=== PATIENT | female | born 1960 | race Caucasian/White ===

== ENCOUNTER 2019-03-11 20:54 | Inpatient (IN) | payer SELFPAY ==
[~2019-03-11] VITALS: Ht 160 cm; Wt 83.6 kg
[2019-03-11] MEDS ORDERED: ACETAMINOPHEN 500 MG TAB (TYLENOL) PO ONE (21:15)
[2019-03-11] MEDS ORDERED: IBUPROFEN 800 MG (MOTRIN) TAB PO ONE (21:15)
[2019-03-11] MEDS ORDERED: ONDANSETRON 4 MG (ZOFRAN) ORAL DISSOLVE TAB PO ONE (21:15)
--- NOTE | 2019-03-11 21:20 | ED General ---
General Chief Complaint: Cough/Cold/Flu Symptoms Stated Complaint: FEVER,ACHES Source of Information: Patient Exam Limitations: No Limitations History of Present Illness Date Seen by Provider: Mar 11, 2019 Time Seen by Provider: 21:16 Initial Comments To ER per accompanied by family with fever, headache, cough, sore throat and body aches that began 3 days ago. She is a diabetic. She follows with [facility]. She finished antibiotics for urinary tract infection one week ago. Timing/Duration: 1-2 Days Severity: Moderate Associated Systoms: Cough, Fever/Chills, Headaches, Malaise, Nausea/Vomiting, Weakness Allergies and Home Medications Allergies Coded Allergies: No Known Drug Allergies (Unverified , 03/11/19) Patient Home Medication List Home Medication List Reviewed: Yes Review of Systems Review of Systems Constitutional: see HPI, chills, fever, malaise EENTM: see HPI, throat pain Respiratory: see HPI, cough Cardiovascular: no symptoms reported Gastrointestinal: No abdominal pain, No diarrhea; nausea; No vomiting Genitourinary: no symptoms reported Musculoskeletal: no symptoms reported; No back pain Skin: no symptoms reported Psychiatric/Neurological: See HPI, Headache Hematologic/Lymphatic: No Symptoms Reported Past Oxgiyrz-Epdsfg-Ousnma Hx Patient Social History Recent Foreign Travel: No Contact w/Someone Who Travel: No Physical Exam Vital Signs Vital Signs - First Documented 03/11/19 21:16 Temp 39.9 Pulse 125 Resp 21 B/P (MAP) 138/81 (100) Pulse Ox 95 O2 Delivery Room Air Capillary Refill : Height, Weight, BMI Height: '" Weight: lbs. oz. kg; BMI Method: General Appearance: No Apparent Distress, WD/WN Eyes: Bilateral Eye Normal Inspection, Bilateral Eye PERRL, Bilateral Eye EOMI HEENT: PERRL/EOMI, TMs Normal, Normal ENT Inspection Neck: Full Range of Motion, Normal Inspection Respiratory: Lungs Clear, Normal Breath Sounds, No Accessory Muscle Use, No Respiratory Distress Gastrointestinal: Normal Bowel Sounds, Non Tender, Soft Back: CVA Tenderness (L), CVA Tenderness (R) Extremity: Normal Capillary Refill, Normal Inspection Neurologic/Psychiatric: Alert, Oriented x3 Skin: Normal Color, Warm/Dry Focused Exam Lactate Level 03/11/19 22:28: Lactic Acid Level 2.35*H Lactic Acid Level Laboratory Tests Test 1/24/20 22:28 Lactic Acid Level 2.35 MMOL/L (0.50-2.00) *H Progress/Results/Core Measures Suspected Sepsis SIRS Temperature: Pulse: Respiratory Rate: Laboratory Tests 03/11/19 21:58: White Blood Count 25.3H Blood Pressure / Mean: 03/11/19 22:28: Lactic Acid Level 2.35*H Laboratory Tests 03/11/19 21:58: Creatinine 0.92, Platelet Count 161, Total Bilirubin 1.1H Results/Orders Lab Results Laboratory Tests Test 03/11/19 21:58 03/11/19 22:28 Range/Units White Blood Count 25.3 H 4.3-11.0 10^3/uL Red Blood Count 4.61 4.35-5.85 10^6/uL Hemoglobin 13.1 11.5-16.0 G/DL Hematocrit 39 35-52 % Mean Corpuscular Volume 84 80-99 FL Mean Corpuscular Hemoglobin 28 25-34 PG Mean Corpuscular Hemoglobin Concent 34 32-36 G/DL Red Cell Distribution Width 14.8 H 10.0-14.5 % Platelet Count 161 130-400 10^3/uL Mean Platelet Volume 12.7 H 7.4-10.4 FL Neutrophils (%) (Auto) 85 H 42-75 % Lymphocytes (%) (Auto) 6 L 12-44 % Monocytes (%) (Auto) 9 0-12 % Eosinophils (%) (Auto) 0 0-10 % Basophils (%) (Auto) 0 0-10 % Neutrophils # (Auto) 21.6 H 1.8-7.8 X 10^3 Lymphocytes # (Auto) 1.4 1.0-4.0 X 10^3 Monocytes # (Auto) 2.3 H 0.0-1.0 X 10^3 Eosinophils # (Auto) 0.0 0.0-0.3 10^3/uL Basophils # (Auto) 0.1 0.0-0.1 10^3/uL Neutrophils % (Manual) 82 % Lymphocytes % (Manual) 7 % Monocytes % (Manual) 11 % Blood Morphology Comment NORMAL Sodium Level 130 L 135-145 MMOL/L Potassium Level 4.1 3.6-5.0 MMOL/L Chloride Level 100 98-107 MMOL/L Carbon Dioxide Level 21 21-32 MMOL/L Anion Gap 9 5-14 MMOL/L Blood Urea Nitrogen 13 7-18 MG/DL Creatinine 0.92 0.60-1.30 MG/DL Estimat Glomerular Filtration Rate > 60 BUN/Creatinine Ratio 14 Glucose Level 262 H 70-105 MG/DL Calcium Level 9.5 8.5-10.1 MG/DL Corrected Calcium 9.9 8.5-10.1 MG/DL Total Bilirubin 1.1 H 0.1-1.0 MG/DL Aspartate Amino Transf (AST/SGOT) 43 H 5-34 U/L Alanine Aminotransferase (ALT/SGPT) 49 0-55 U/L Alkaline Phosphatase 90 40-136 U/L B-Type Natriuretic Peptide 40.3 <100.0 PG/ML Total Protein 7.0 6.4-8.2 GM/DL Albumin 3.5 3.2-4.5 GM/DL Urine Color ORANGE Urine Clarity CLEAR Urine pH 6.5 5-9 Urine Specific Hope 1.020 1.016-1.022 Urine Protein TRACE NEGATIVE Urine Glucose (UA) NEGATIVE NEGATIVE Urine Ketones NEGATIVE NEGATIVE Urine Nitrite NEGATIVE NEGATIVE Urine Bilirubin NEGATIVE NEGATIVE Urine Urobilinogen 1.0 < = 1.0 MG/DL Urine Leukocyte Esterase 2+ H NEGATIVE Urine RBC (Auto) 1+ H NEGATIVE Urine RBC 2-5 H /HPF Urine WBC 25-50 H /HPF Urine Crystals NONE /LPF Urine Bacteria LARGE H /HPF Urine Casts NONE /LPF Urine Mucus NEGATIVE /LPF Urine Culture Indicated YES Lactic Acid Level 2.35 *H 0.50-2.00 MMOL/L Group A Streptococcus Screen NEGATIVE NEGATIVE Micro Results Microbiology 03/11/19 Influenza Types A,B Antigen (ELIZABETH) - Final, Complete My Orders Orders - YUNI DICKSON APRN Influenza A And B Antigens (03/11/19 21:15) Chest Pa/Lat (2 View) (03/11/19 21:15) Ondansetron Oral Dissolve Tab (Zofran (03/11/19 21:15) Acetaminophen Tablet (Tylenol Tablet) (03/11/19 21:15) Ibuprofen Tablet (Motrin Tablet) (03/11/19 21:15) Cbc With Automated Diff (03/11/19 21:53) BNP (03/11/19 22:09) Manual Differential (03/11/19 21:58) Rapid Strep A Screen (03/11/19 22:20) Comprehensive Metabolic Panel (03/11/19 22:20) Ua Culture If Indicated (03/11/19 22:34) Blood Culture (03/11/19 22:34) Lactic Acid Analyzer (03/11/19 22:34) Ns Iv 1000 Ml (Sodium Chloride 0.9%) (03/11/19 22:45) Ceftriaxone For Iv Use (Rocephin For I (03/11/19 22:45) Ns Iv 1000 Ml (Sodium Chloride 0.9%) (03/11/19 23:00) Urine Culture (03/11/19 22:28) Medications Given in ED Current Medications Medications Dose Ordered Sig/Ángel Route Start Time Stop Time Status Last Admin Dose Admin Acetaminophen 1,000 mg ONCE ONCE PO 03/11/19 21:15 03/11/19 21:16 DC 03/11/19 21:23 1,000 MG Ceftriaxone Sodium 1000 mg/ Sterile Water 10 ml @ 200 mls/hr ONCE ONCE IV 03/11/19 22:45 03/11/19 22:47 DC 03/11/19 22:58 200 MLS/HR Ibuprofen 800 mg ONCE ONCE PO 03/11/19 21:15 03/11/19 21:16 DC 03/11/19 21:23 800 MG Ondansetron HCl 4 mg ONCE ONCE PO 03/11/19 21:15 03/11/19 21:16 DC 03/11/19 21:23 4 MG Vital Signs/I&O 03/11/19 03/11/19 03/11/19 03/11/19 21:16 21:23 21:23 21:28 Temp 39.9 39.9 39.9 Pulse 125 Resp 21 B/P (MAP) 138/81 (100) Pulse Ox 95 O2 Delivery Room Air Room Air Capillary Refill : Diagnostic Imaging Diagonstic Imaging: Xray Plain Films/CT/US/NM/MRI: chest Comments NAME: SIENNA SIMEON [facility] REC#: [id number] PT STATUS: REG ER : 1960 PHYSICIAN: YUNI DICKSON APRN ADMIT DATE: 03/11/19/ER Draft Date of Exam:03/11/19 CHEST PA/LAT (2 VIEW) INDICATION: Cough. EXAMINATION: Two-view chest 03/11/2019. FINDINGS: 2 views of the chest. The heart is unremarkable. Pulmonary vasculature is congested. Remaining lungs clear. No effusions or infiltrates. IMPRESSION: 1. Findings of pulmonary edema. Dictated on workstation # [id number] Dict: 03/11/192157 Trans: 03/11/192199 [id number] Interpreted by: MICHELLE LU MD Electronically signed by: Departure Communication (Admissions) Time/Spoke to Admitting Phy: 23:11 Dr. Youngblood, we'll admit to the ICU, sepsis protocol, will use cefepime given the risk for multidrug resistant organisms given recent antibiotic use. Upon arrival to ER she was febrile at 103.4. Tachycardic but not hypotensive. Based on symptoms and high fever influenza was suspected. Flu swab was obtained but surprisingly was negative. CBC was then done showing leukocytosis. Additional workup included rapid strep A lactic acid blood culture and urinalysis. She is feeling better after the Tylenol and ibuprofen. IV started and 2 L fluid bolus given. Impression Primary Impression: Sepsis Qualified Codes: A41.9 - Sepsis, unspecified organism Additional Impression: Pyelonephritis Disposition: ADMITTED INPATIENT Condition: Stable Admissions Decision to Admit Reason: Admit from ER (General) Decision to Admit/Date: Mar 11, 2019 Time/Decision to Admit Time: 22:52 Departure-Patient Inst. Decision time for Depature: 21:18 Referrals: NO,LOCAL PHYSICIAN (PCP) Primary Care Physician Patient Instructions: Flu Add. Discharge Instructions: Use Tylenol (acetaminophen) and ibuprofen (Motrin) for fever control. You can u se this several times per day, every 4 hours for the Tylenol and 6 hours for the Motrin. You Will not feel much better for the next few days. Expects to be sick for about 7-10 days. YUNI DICKSON APRN Mar 11, 2019 21:20
--- NOTE | 2019-03-11 22:00 | Diagnostic Imaging Report ---
INDICATION: Cough. EXAMINATION: Two-view chest 03/11/2019. FINDINGS: 2 views of the chest. The heart is unremarkable. Pulmonary vasculature is congested. Remaining lungs clear. No effusions or infiltrates. IMPRESSION: 1. Findings of pulmonary edema. Dictated by: Dictated on workstation # [id number]
[2019-03-11 22:14] LABS: BASOPHILS # (AUTO) 0.1 10^3/uL (0.0-0.1); BASOPHILS % (AUTO) 0 % (0-10); EOSINOPHILS % (AUTO) 0 % (0-10); HEMATOCRIT 39 % (35-52); HEMOGLOBIN 13.1 G/DL (11.5-16.0); LYMPHOCYTES # (AUTO) 1.4 X 10^3 (1.0-4.0); LYMPHOCYTES % (AUTO) 6 % (12-44); MEAN CORPUSCULAR HEMOGLOBIN 28 PG (25-34); MEAN CORPUSCULAR HGB CONC 34 G/DL (32-36); MEAN CORPUSCULAR VOLUME 84 FL (80-99); MEAN PLATELET VOLUME 12.7 FL (7.4-10.4); MONOCYTES # (AUTO) 2.3 X 10^3 (0.0-1.0); MONOCYTES % (AUTO) 9 % (0-12); NEUTROPHILS # (AUTO) 21.6 X 10^3 (1.8-7.8); NEUTROPHILS % (AUTO) 85 % (42-75); PLATELET COUNT 161 10^3/uL (130-400); RED CELL DISTRIBUTION WIDTH 14.8 % (10.0-14.5); WHITE BLOOD COUNT 25.3 10^3/uL (4.3-11.0)
[2019-03-11 22:43] LABS: ALANINE AMINOTRANSFERASE 49 U/L (0-55); ALBUMIN 3.5 GM/DL (3.2-4.5); ALKALINE PHOSPHATASE 90 U/L (40-136); BILIRUBIN,TOTAL 1.1 MG/DL (0.1-1.0); BUN/CREATININE RATIO 14; CALCIUM 9.5 MG/DL (8.5-10.1); CARBON DIOXIDE 21 MMOL/L (21-32); CHLORIDE 100 MMOL/L (98-107); CREATININE SERUM 0.92 MG/DL (0.60-1.30); GFR ESTIMATED > 60; GLUCOSE 262 MG/DL (70-105); LYMPHOCYTES % (MANUAL) 7 %; MONOCYTES % (MANUAL) 11 %; NEUTROPHILS % (MANUAL) 82 %; POTASSIUM 4.1 MMOL/L (3.6-5.0); RBC MORPH NORMAL; SODIUM 130 MMOL/L (135-145)
[2019-03-11] MEDS ORDERED: NS IV 1000 ML 1,000 ML IV SCH ×2 (22:45→23:00)
[2019-03-11] MEDS ORDERED: cefTRIAXone FOR IV USE 1,000 MG in WATER (STERILE) FOR INJECTION 10 ML IV ONE (22:45)
[2019-03-11 22:56] LABS: BILIRUBIN,URINE NEGATIVE (NEGATIVE); CLARITY,URINE CLEAR; COLOR,URINE ORANGE; GLUCOSE, URINE (UA) NEGATIVE (NEGATIVE); KETONES,URINE NEGATIVE (NEGATIVE); LEUKOCYTE ESTERASE ,URINE 2+ (NEGATIVE); NITRITE,URINE NEGATIVE (NEGATIVE); PH,URINE 6.5 (5-9); PROTEIN,URINE TRACE (NEGATIVE)
[2019-03-11 23:05] LABS: BACTERIA,URINE LARGE /HPF; WBC,URINE 25-50 /HPF
[2019-03-12] VITALS (20 sets, daily range): BP systolic 81–127; BP diastolic 53–77
[2019-03-12] MEDS ORDERED: ACETAMINOPHEN 325 MG TABLET PO PRN (01:15)
[2019-03-12] MEDS ORDERED: ONDANSETRON 4 MG/2 ML (SDV) Z0FRAN IV PRN (01:15)
[2019-03-12] MEDS: VASOPRESSIN INJECTION 20 UNIT in NORMAL SALINE 100 ML IV SCH ×2 (01:29→08:22)
[2019-03-12] MEDS ORDERED: ENOXAPARIN 40 MG/0.4 ML (LOVENOX) SYR SC SCH (01:29)
[2019-03-12] MEDS: NOREPINEPHRINE 4 MG/250 ML NS 250 ML IV SCH ×2 (01:29→08:23)
[2019-03-12] MEDS: NS IV 1000 ML 1,000 ML IV SCH ×4 (01:29→08:06)
--- NOTE | 2019-03-12 01:29 | NUR ---
PT RECEIVED 2 LITER BOLUS IN ER
[2019-03-12] MEDS ORDERED: LORazepam INJ 2 MG/ML (ATIVAN) VIAL IV PRN (01:30)
[2019-03-12] MEDS ORDERED: EPINEPHrine 1 MG INJECTION 2 MG in NS (IVPB) 250 ML IV SCH (01:30)
[2019-03-12 01:33] LABS: BASOPHILS % (AUTO) 0 % (0-10); EOSINOPHILS % (AUTO) 0 % (0-10); HEMATOCRIT 35 % (35-52); HEMOGLOBIN 11.6 G/DL (11.5-16.0); LYMPHOCYTES # (AUTO) 1.4 X 10^3 (1.0-4.0); LYMPHOCYTES % (AUTO) 7 % (12-44); MEAN CORPUSCULAR HEMOGLOBIN 28 PG (25-34); MEAN CORPUSCULAR HGB CONC 33 G/DL (32-36); MEAN CORPUSCULAR VOLUME 86 FL (80-99); MEAN PLATELET VOLUME 12.3 FL (7.4-10.4); MONOCYTES # (AUTO) 1.4 X 10^3 (0.0-1.0); MONOCYTES % (AUTO) 7 % (0-12); NEUTROPHILS # (AUTO) 17.4 X 10^3 (1.8-7.8); NEUTROPHILS % (AUTO) 86 % (42-75); PLATELET COUNT 142 10^3/uL (130-400); RED CELL DISTRIBUTION WIDTH 14.6 % (10.0-14.5); WHITE BLOOD COUNT 20.2 10^3/uL (4.3-11.0)
[2019-03-12 01:48] LABS: ALANINE AMINOTRANSFERASE 39 U/L (0-55); ALBUMIN 2.9 GM/DL (3.2-4.5); ALKALINE PHOSPHATASE 73 U/L (40-136); BUN/CREATININE RATIO 15; CALCIUM 8.1 MG/DL (8.5-10.1); CARBON DIOXIDE 19 MMOL/L (21-32); CHLORIDE 105 MMOL/L (98-107); CREATININE SERUM 0.81 MG/DL (0.60-1.30); GFR ESTIMATED > 60; GLUCOSE 218 MG/DL (70-105); MAGNESIUM 1.7 MG/DL (1.6-2.4); PHOSPHORUS 2.9 MG/DL (2.3-4.7); SODIUM 134 MMOL/L (135-145); TOTAL PROTEIN 5.8 GM/DL (6.4-8.2)
[2019-03-12] MEDS ORDERED: SODIUM BICARB 8.4% 50 MEQ/50 ML VIAL ONE (02:52)
--- NOTE | 2019-03-12 03:10 | NUR ---
NOTIFIED E-ICU OF LOW BP, SEE ORDER HX
[2019-03-12] MEDS ORDERED: SODIUM BICARB 8.4% 50 MEQ/50 ML VIAL IV ONE (03:15)
[2019-03-12] MEDS ORDERED: NS IV 1000 ML 1,000 ML IV ONE (03:15)
[2019-03-12] MEDS: MAGNESIUM 1 GM/100 ML IVPB 100 ML IV SCH ×2 (05:00→05:59)
[2019-03-12] MEDS: CEFEPIME INJECTION 1,000 MG in WATER (STERILE) FOR INJECTION 10 ML IV SCH ×4 (05:00→22:39)
--- NOTE | 2019-03-12 05:55 | Pulmonary Consultation ---
History of Present Illness History of Present Illness Date of Admission Allergies and Home Medications Allergies Coded Allergies: No Known Drug Allergies (Unverified , 03/11/19) Past Zgnpruk-Zhdijl-Seqeou Hx Patient Social History Alcohol Use: Denies Use Recreational Drug Use: No Smoking Status: Never a Smoker 2nd Hand Smoke Exposure: No Recent Foreign Travel: No Contact w/Someone Who Travel: No Recent Infectious Disease Expo: No Recent Hopitalizations: No Physical Abuse: No Sexual Abuse: No Mistreated: No Fear: No Immunizations Up To Date Date of Influenza Vaccine: Dec 18, 2019 Seasonal Allergies Seasonal Allergies: No Past Medical History Surgeries: No Respiratory: No Cardiac: No Neurological: No Genitourinary: No Gastrointestinal: No Musculoskeletal: No Endocrine: No HEENT: No Cancer: No Psychosocial: No Integumentary: No Sepsis Event Evaluation Height, Weight, BMI Height: '" Weight: lbs. oz. kg; 31.79 BMI Method: Exam Exam Vital Signs Date Time Temp Pulse Resp B/P (MAP) Pulse Ox O2 Delivery O2 Flow Rate FiO2 03/12/19 04:00 96 Room Air 03/12/19 04:00 36.7 03/12/19 03:08 36.1 03/12/19 03:00 73 18 81/53 (62) 93 Room Air 03/12/19 02:00 78 22 88/56 (67) 90 Room Air 03/12/19 01:30 80 15 94/57 (69) 92 Room Air 03/12/19 01:15 74 16 108/72 (84) 92 Room Air 03/12/19 01:11 94 Room Air 03/12/19 01:03 36.6 03/12/19 01:00 77 15 113/66 (82) 94 Room Air 03/12/19 00:48 76 16 103/67 (79) 94 Room Air 03/12/19 00:47 85 03/12/19 00:47 77 03/12/19 00:20 39.9 125 21 110/72 (100) 95 Room Air 03/11/19 21:28 Room Air 03/11/19 21:23 39.9 03/11/19 21:23 39.9 03/11/19 21:16 39.9 125 21 138/81 (100) 95 Room Air I & O 03/12/19 07:00 Intake Total 5010 ml Output Total 350 ml Balance 4660 ml Height & Weight Height: '" Weight: lbs. oz. kg; 31.79 BMI Method: General Appearance: No Apparent Distress, WD/WN HEENT: PERRL/EOMI, TMs Normal, Normal ENT Inspection Neck: Full Range of Motion, Normal Inspection Respiratory: Lungs Clear, Normal Breath Sounds, No Accessory Muscle Use, No Respiratory Distress Capillary Refill: Less Than 3 Seconds Extremity: Normal Capillary Refill, Normal Inspection Neurologic/Psychiatric: Alert, Oriented x3 Skin: Normal Color, Warm/Dry Results Lab Laboratory Tests 03/11/19 21:58 03/12/19 01:24 Assessment/Plan Assessment/Plan Pyelonephritis with severe sepsis -Severe sepsis protocol -Continue Cefepime -Await gonzalez cultures -Failed out pt treatment -Influenza is negative -NS at 150cc/hr DMII -Start SSI Hypotension - responded to IVF -Continue to monitor Hypomag -replace Hyponatremia -Monitor BRISA LARSON DO Mar 12, 2019 05:54
[2019-03-12] MEDS ORDERED: POTASSIUM CL 10MEQ/50ML IVPB 50 ML IV SCH (06:00)
[2019-03-12] MEDS ORDERED: KCL 20 MEQ TAB (K-DUR) PO SCH (06:00)
[2019-03-12] MEDS ORDERED: MAGNESIUM 1 GM/100 ML IVPB 100 ML IV SCH (06:00)
[2019-03-12] MEDS: inSUlin ASPART (NovoLOG) 1 UNIT/0.01 ML (CHARGE PER UNIT) SC SCH ×4 (06:11→21:29)
[2019-03-12] MEDS: ENOXAPARIN 40 MG/0.4 ML (LOVENOX) SYR SC SCH (08:07)
--- NOTE | 2019-03-12 10:45 | History & Physical-Hospitalist ---
History of Present Illness HPI/Chief Complaint Chief complaint: Sepsis with pyelonephritis History of present illness: This is a 58-year-old white female who presented to the ER with fever and chills found to have sepsis with pyelonephritis and high risk for decompensation so she was given aggressive IV fluids along with IV antibiotics empirically and placed in the ICU overnight. At this current time patient is doing much better she only speaks Syrian so I did communicate with her and basic Syrian terms and currently she is doing much better. She is coughing but it is nonproductive. We will transfer her to fourth floor since she has improved. Source: patient Exam Limitations: no limitations Date Seen 03/12/19 Time Seen by a Provider: 10:00 Attending Physician Mi Youngblood DO PCP No,Local Physician Referring Physician Date of Admission Mar 11, 2019 at 22:57 Home Medications & Allergies Home Medications Reviewed patient Home Medication Reconciliation performed by pharmacy medication reconciliations apprentice instrument technician and/or nursing. Patients Allergies have been reviewed. Allergies Allergies Coded Allergies No Known Drug Allergies (Unverified03/11/19) Past Ontzqlr-Owphgp-Cxuafm Hx Past Med/Social Hx: Reviewed Nursing Past Med/Soc Hx, Reviewed and Corrections made Patient Social History Marrital Status: Employed/Student: unemployed Alcohol Use: Denies Use Recreational Drug Use: No Smoking Status: Never a Smoker 2nd Hand Smoke Exposure: No Recent Foreign Travel: No Contact w/other who traveled: No Recent Hopitalizations: No Recent Infectious Disease Expo: No Immunizations Up To Date Date of Influenza Vaccine: Dec 18, 2019 Seasonal Allergies Seasonal Allergies: No Review of Systems Constitutional: see HPI, fever, malaise, weakness Respiratory: cough Physical Exam Physical Exam Vital Signs Vital Signs - First Documented 03/11/19 21:16 Temp 39.9 Pulse 125 Resp 21 B/P (MAP) 138/81 (100) Pulse Ox 95 O2 Delivery Room Air Capillary Refill : Less Than 3 Seconds Height, Weight, BMI Height: '" Weight: lbs. oz. kg; 31.79 BMI Method: General Appearance: No Apparent Distress, Chronically ill Eyes: Right Eye Normal Inspection, Right Eye PERRL HEENT: PERRL/EOMI, Normal ENT Inspection, Pharynx Normal, Moist Mucous Membranes Neck: Full Range of Motion, Normal Inspection, Non Tender Respiratory: Chest Non Tender, Lungs Clear, Normal Breath Sounds, No Accessory Muscle Use, No Respiratory Distress, Decreased Breath Sounds Cardiovascular: Regular Rate, Rhythm, No Edema, No Gallop, No JVD, No Murmur, Normal Peripheral Pulses Gastrointestinal: Normal Bowel Sounds, No Organomegaly, No Pulsatile Mass, Non Tender, Soft Back: Normal Inspection, No CVA Tenderness, No Vertebral Tenderness Extremity: Normal Capillary Refill, Normal Inspection, Normal Range of Motion, Non Tender, No Calf Tenderness, No Pedal Edema Neurologic/Psychiatric: Alert, Oriented x3, No Motor/Sensory Deficits, Normal Mood/Affect Skin: Normal Color, Warm/Dry Lymphatic: No Adenopathy Results Results/Procedures Labs Laboratory Tests 03/11/19 21:58 03/12/19 01:24 Patient resulted labs reviewed. Assessment/Plan Admission Diagnosis Assessment: Sepsis Pyelonephritis Cough Hyperglycemia Plan: Transfer to fourth floor Continue IV fluids but slower rate IV antibiotics Check hemoglobin A1c suspicion for diabetes Admission Status: Inpatient Order (span 2 midnights) Reason for Inpatient Admission: Sepsis with pyelonephritis will require 3 days Diagnosis/Problems Diagnosis/Problems (1) Sepsis Status: Acute Qualifiers: Sepsis type: sepsis due to unspecified organism Sepsis acute organ dysfunction status: without acute organ dysfunction Qualified Codes: A41.9 - Sepsis, unspecified organism (2) Pyelonephritis Status: Acute (3) UTI (urinary tract infection) Clinical Quality Measures DVT/VTE Risk/Contraindication: Risk Factor Score Per Nursin RFS Level Per Nursing on Admit: 4+=Very High MI YOUNGBLOOD DO Mar 12, 2019 10:45
--- NOTE | 2019-03-12 10:55 | NUR ---
REPORT GIVEN TO CAPO PATEL ON FOURTH FLOOR. PT TAKEN DOWN VIA WHEELCHAIR WITH DAUGHTER AND BELONGINGS.
[2019-03-12] MEDS ORDERED: POTASSIUM CHLORIDE INJ 10 MEQ in NS IV 1000 ML 1,000 ML IV SCH ×2 (11:15→17:30)
--- NOTE | 2019-03-12 11:20 | NUR ---
Patient transferred to [facility] per W/C accompanied by ICU STAFF. Patient and family notified and understand transfer. Personal belongings with patient. Report given to THIS RN FROM RESIDENTIAL TECH.
--- NOTE | 2019-03-12 13:12 | NUR ---
NOTE THAT COMPUTER SCANNER IN RM 409 NOT WORKING -- THIS RN ASKED UC TO PUT IN A WORK ORDER -- SHE VOICED THAT ONE WAS PLACED YESTERDAY 03/11
[2019-03-12] MEDS: IBUPROFEN 800 MG (MOTRIN) TAB PO PRN (15:03)
--- NOTE | 2019-03-12 16:00 | NUR ---
THIS RT TO BEDSIDE FOR ASSESSMENT PER OJRGE SCANLON REQUEST. PT ASSESSED INSPIRATORY RALES NOTED BILATERALLY T/O AND SPO2 NOTED TO BE 94% ON ROOM AIR RR 20. PT FAMILY AT BEDSIDE REPORTING THAT PT BECAME TACHYPNEIC ALL THE SUDDEN. RECOMMENDATION PROVIDED TO RN TO SEE IF PHYSICIAN WOULD LIKE TO ASSESS CXR D/T NO CURRENT RT ORDERS. RN INFORMED TO NOTIFY RESPIRATORY FOR ANY FURTHER NEEDS.
--- NOTE | 2019-03-12 16:10 | NUR ---
C/O TIGHTNESS TO CHEST -- LUNG SOUNDS CRACKLY, CALLED AND LEFT MESSAGE FOR DR LARA --RECEIVED ORDER TO SL IVFS, AND CALLED VS TO DR LARA 106/63,85,91% RA, RESP 18, 36.2,
[2019-03-12 16:44] LABS: ABG BASE EXCESS -2.1 MMOL/L (-2.5-2.5); ABG OXYGEN SATURATION 96 % (94-100); ABG PCO2 28 MMHG (35-45); ABG PH 7.49 (7.37-7.43); ABG PO2 70 MMHG (79-93); ABG TCO2 21.8 MMOL/L (21.0-31.0)
[2019-03-12] MEDS ORDERED: CATHETER FLUSH 10 ML SYR IV PRN (16:45)
[2019-03-12 16:50] LABS: ALLENS TEST POS; INSPIRED O2 RA; PATIENT TEMP 36.2; VENTILATOR NO
--- NOTE | 2019-03-12 18:15 | NUR ---
RECEIVED REPORT FROM ALESHIA PATEL. AGREE WITH CAPO'S ASSESSMENT. PT RESTING AND VOICES NO COMPLAINTS. AT BEDSIDE.
--- NOTE | 2019-03-12 18:28 | NUR ---
NOTE THAT PT TRANSFERRED BACK TO ICU BED 10-- SEE LABS -- DR ANDERSON WAS CONSULTED AND DR LARA TALKED TO HIM -- PT'S WAS WITH HER AND HE SPEAKS AND UNDERSTANDS BULGARIAN -- HE ALSO WENT TO ICU --BEDSIDE REPORT WAS GIVEN JORGE MONK FOR JORGE TURCIOS --
[2019-03-12] MEDS ORDERED: CEFEPIME 1 GM (MAXIPIME) VIAL ONE (22:28)
[2019-03-12] MEDS ORDERED: WATER (STERILE) FOR INJECTION 10 ML ONE (22:28)
[2019-03-12] MEDS: CATHETER FLUSH 10 ML SYR IV SCH (22:39)
[2019-03-13] VITALS (21 sets, daily range): BP systolic 90–137; BP diastolic 57–82
--- NOTE | 2019-03-13 01:00 | NUR ---
0030- PT COMPLAINING OF SOB AND CHEST PAIN THAT RADIATES TO BILATERAL ARMS AND INTO HER BACK. TEMP-38.0 HR-84, 02-94% ON ROOM AIR. BREATH SOUNDS CLEAR ON AUSCULTATION, PT VERY ANXIOUS AND CRYING. EKG PERFORMED-SR. OXYMASK PLACED ON PT ON 2LITERS FOR COMFORT. IV ATIVAN GIVEN FOR COMFORT. 0050- SPOKE WITH E-ICU AND INFORMED THEM OF ABOVE FINDINGS. AWAITING ORDERS AT THIS TIME. WILL CONTINUE TO MONITOR PT.
[2019-03-13 01:26] LABS: BASOPHILS % (AUTO) 0 % (0-10); EOSINOPHILS # (AUTO) 0.2 10^3/uL (0.0-0.3); EOSINOPHILS % (AUTO) 1 % (0-10); HEMATOCRIT 33 % (35-52); HEMOGLOBIN 10.6 G/DL (11.5-16.0); LYMPHOCYTES # (AUTO) 1.1 X 10^3 (1.0-4.0); LYMPHOCYTES % (AUTO) 7 % (12-44); MEAN CORPUSCULAR HEMOGLOBIN 28 PG (25-34); MEAN CORPUSCULAR HGB CONC 32 G/DL (32-36); MEAN CORPUSCULAR VOLUME 87 FL (80-99); MEAN PLATELET VOLUME 12.6 FL (7.4-10.4); MONOCYTES # (AUTO) 1.3 X 10^3 (0.0-1.0); MONOCYTES % (AUTO) 9 % (0-12); NEUTROPHILS # (AUTO) 12.2 X 10^3 (1.8-7.8); NEUTROPHILS % (AUTO) 83 % (42-75); PLATELET COUNT 107 10^3/uL (130-400); RED CELL DISTRIBUTION WIDTH 14.6 % (10.0-14.5); WHITE BLOOD COUNT 14.8 10^3/uL (4.3-11.0)
[2019-03-13] MEDS ORDERED: NS IV 1000 ML 1,000 ML IV SCH (01:45)
[2019-03-13] MEDS ORDERED: morphine INJ 4 MG/ML 1 ML (VIAL/SYRINGE) IV ONE (01:45)
[2019-03-13] MEDS ORDERED: ALBUMIN 5% 12.5 GM/250 ML 500 ML IV ONE (01:45)
[2019-03-13 01:46] LABS: ALBUMIN 2.7 GM/DL (3.2-4.5); BUN/CREATININE RATIO 13; CARBON DIOXIDE 18 MMOL/L (21-32); CHLORIDE 108 MMOL/L (98-107); CREATININE SERUM 0.71 MG/DL (0.60-1.30); GFR ESTIMATED > 60; GLUCOSE 195 MG/DL (70-105); MAGNESIUM 1.8 MG/DL (1.6-2.4); PHOSPHORUS 1.4 MG/DL (2.3-4.7); POTASSIUM 4.1 MMOL/L (3.6-5.0); SODIUM 135 MMOL/L (135-145)
[2019-03-13] MEDS: MAGNESIUM 1 GM/100 ML IVPB 100 ML IV SCH (02:38)
[2019-03-13] MEDS: POTASSIUM CL 10MEQ/50ML IVPB 50 ML IV SCH (02:39)
[2019-03-13] MEDS: KCL 20 MEQ TAB (K-DUR) PO SCH (02:39)
[2019-03-13] MEDS ORDERED: WATER (STERILE) FOR INJECTION 10 ML ONE ×2 (05:50→21:51)
[2019-03-13] MEDS ORDERED: CEFEPIME 1 GM (MAXIPIME) VIAL ONE (05:50)
[2019-03-13] MEDS: CEFEPIME INJECTION 1,000 MG in WATER (STERILE) FOR INJECTION 10 ML IV SCH (06:17)
[2019-03-13] MEDS: CATHETER FLUSH 10 ML SYR IV SCH ×3 (06:17→22:06)
[2019-03-13] MEDS: inSUlin ASPART (NovoLOG) 1 UNIT/0.01 ML (CHARGE PER UNIT) SC SCH ×4 (06:21→22:06)
--- NOTE | 2019-03-13 07:09 | Pulmonary Progress Note ---
Subjective Time Seen by a Provider: 07:04 Sepsis Event Evaluation Height, Weight, BMI Height: '" Weight: lbs. oz. kg; 31.79 BMI Method: Focused Exam Lactate Level 03/12/19 01:24: Lactic Acid Level 1.20 03/12/19 16:33: Lactic Acid Level 1.47 03/13/19 01:16: Lactic Acid Level 0.95 Exam Exam Vital Signs Date Time Temp Pulse Resp B/P (MAP) Pulse Ox O2 Delivery O2 Flow Rate FiO2 03/13/19 06:00 79 21 124/76 (92) 93 Room Air 03/13/19 05:00 81 23 110/68 (82) 92 Room Air 03/13/19 04:00 82 26 122/70 (87) 92 Room Air 03/13/19 04:00 OxyMask 2.00 03/13/19 03:00 87 28 113/67 (82) 92 Room Air 03/13/19 02:00 86 27 123/74 (90) 95 Room Air 03/13/19 01:00 84 29 116/78 (91) 96 Room Air 03/13/19 01:00 84 03/13/19 00:58 38.0 03/13/19 00:30 OxyMask 2.00 03/13/19 00:00 76 21 105/66 (79) 91 Room Air 03/12/19 23:00 81 18 102/77 (85) 95 Room Air 03/12/19 22:00 75 21 95/58 (70) 97 Room Air 03/12/19 21:00 79 28 99/72 (81) 97 Room Air 03/12/19 20:15 Room Air 03/12/19 20:15 36.3 Room Air 03/12/19 20:00 75 22 102/57 (72) 98 Room Air 03/12/19 19:00 70 22 113/73 (86) 98 Room Air 03/12/19 18:48 80 03/12/19 16:05 96 Room Air 03/12/19 16:00 36.2 85 22 106/63 (77) 91 Room Air 03/12/19 15:40 37.2 03/12/19 11:32 37.2 94 24 104/58 (73) 94 Room Air 03/12/19 11:20 96 Room Air 03/12/19 10:00 98 31 120/70 (87) 91 Room Air 03/12/19 09:00 92 36 115/67 (83) 96 Room Air 03/12/19 08:00 36.8 03/12/19 08:00 96 Room Air 03/12/19 08:00 91 31 127/70 (89) 97 Room Air I & O 03/13/19 07:00 Intake Total 4400 ml Output Total 2600 ml Balance 1800 ml Height & Weight Height: '" Weight: lbs. oz. kg; 31.79 BMI Method: General Appearance: No Apparent Distress, Chronically ill HEENT: PERRL/EOMI, Normal ENT Inspection, Pharynx Normal, Moist Mucous Membranes Neck: Full Range of Motion, Normal Inspection, Non Tender Respiratory: Chest Non Tender, Lungs Clear, Normal Breath Sounds, No Accessory Muscle Use, No Respiratory Distress, Decreased Breath Sounds Cardiovascular: Regular Rate, Rhythm, No Edema, No Gallop, No JVD, No Murmur, Normal Peripheral Pulses Capillary Refill: Less Than 3 Seconds Extremity: Normal Capillary Refill, Normal Inspection, Normal Range of Motion, Non Tender, No Calf Tenderness, No Pedal Edema Neurologic/Psychiatric: Alert, Oriented x3, No Motor/Sensory Deficits, Normal Mood/Affect Skin: Normal Color, Warm/Dry Lymphatic: No Adenopathy Results Lab Laboratory Tests 03/11/19 21:58 03/12/19 01:24 03/13/19 01:16 Assessment/Plan Assessment/Plan Pyelonephritis with severe sepsis -Severe sepsis protocol -Continue Cefepime -Await gonzalez cultures -Failed out pt treatment -Influenza is negative Mild pulmonary edema -Will give lasix 40mg IV X 1 -SL IVF -Echo pending for today -Change oxygen to regular NC -Keep Sp02 >94% anxiety -Currently getting Ativan -Add morphine DMII -Start SSI Hypotension - responded to IVF -Continue to monitor Hypomag -replace Hyponatremia -Monitor BRISA LARSON DO Mar 13, 2019 07:09
[2019-03-13] MEDS ORDERED: FUROSEMIDE 40 MG/4 ML INJ (LASIX) IVP ONE (07:15)
[2019-03-13] MEDS ORDERED: SODIUM PHOSPHATE INJ 30 MM in NS (IVPB) 250 ML IV ONE (07:15)
[2019-03-13] MEDS ORDERED: morphine INJ 4 MG/ML 1 ML (VIAL/SYRINGE) IVP PRN (07:15)
--- NOTE | 2019-03-13 07:34 | Diagnostic Imaging Report ---
INDICATION: Chest pain. Comparison made with prior examination from 03/11/2019. FINDINGS: The heart size is normal. Some venous congestion. There is a right perihilar infiltrate. There is no pleural effusion or pneumothorax. Mediastinum is unremarkable. IMPRESSION: Right perihilar infiltrate suspect for pneumonia. Mild central pulmonary venous congestion. Dictated by: Dictated on workstation # [id number]
[2019-03-13] MEDS: ENOXAPARIN 40 MG/0.4 ML (LOVENOX) SYR SC SCH (08:21)
[2019-03-13] MEDS: IBUPROFEN 800 MG (MOTRIN) TAB PO PRN (08:35)
[2019-03-13] MEDS ORDERED: KCL 20 MEQ TAB (K-DUR) PO ONE (09:00)
--- NOTE | 2019-03-13 10:00 | NUR ---
THIS NURSE NOTIFIED DR ANDERSON SERIAL TROPONINS WERE ORDERED STARTING AT 1200. DR ANDERSON ORDERED ADD ON FROM MORNING LABS AND IF THE FIRST 3 COME BACK NEGATIVE NURSE CAN DC 4TH TROPONIN.
--- NOTE | 2019-03-13 10:18 | Consultation-Cardiology ---
HPI-Cardiology Cardiology Consultation: Date of Consultation 03/13/19 Date of Admission Attending Physician Mi Youngblood DO Admitting Physician Kaya,Local Physician Consulting Physician Jayda MINOR MD HPI: Time Seen by a Provider: 10:18 Chief Complaint: Sepsis This is a 58-year-old lady who presents to the ER with complains of fever, headache, cough, sore throat, body aches, abdominal discomfort. She has history of diabetes. She was diagnosed with severe sepsis due to likely a UTI. She denies any post cardiac history however complained of palpitations and mild chest discomfort. She denied any syncope, near-syncope or shortness of breath. She denies active smoking. No pertinent family history of CAD. Review of Systems-Cardiology Review of Systems Constitutional: As described under HPI; No As described under HPI, No no symptoms reported, No chills, No fever, No lightheadedness Eyes: No As described under HPI, No no symptoms reported, No blindness, No blurred vision, No contact lenses, No drainage, No decreased acuity, No foreign body sensation, No pain, No vision change Ears/Nose/Throat: No As described under HPI, No no symptoms reported, No chronic hearing loss, No ear discharge, No ear pain, No nasal drainage, No ulcerations Respiratory: No no symptoms reported; As described under HPI; No As described under HPI, No cough, No orthopnea, No shortness of breath, No SOB with excertion Cardiovascular: No no symptoms reported; As described under HPI; No As described under HPI, No chest pain, No edema, No irregular heart rate, No lightheadedness, No palpitations Gastrointestinal: No no symptoms reported, No As described under HPI, No abdomen distended; abdominal pain; No blood streaked bowels, No constipation, No diarrhea, No nausea, No vomiting, No stool coloration changes Genitourinary: No As described under HPI, No burning, No dysuria, No discharge, No frequency, No flank pain, No hematuria, No urgency : Yes : No Skin: No rash, No skin related problems, No ulcerations Psychiatric/Neurological: No anxiety, No depression, No seizure, No focal weakness, No syncope Hematologic: No bleeding abnormalities [id number] Hx Patient Social History Marrital Status: Employed/Student: unemployed Alcohol Use: Denies Use Recreational Drug Use: No Smoking Status: Never a Smoker 2nd Hand Smoke Exposure: No Recent Foreign Travel: No Recent Infectious Disease Expo: No Hospitalization with Isolation: Denies Immunizations Up To Date Date of Influenza Vaccine: Dec 18, 2019 Past Medical History PMH As described under Assessment. Allergies and Home Medications Allergies Coded Allergies: No Known Drug Allergies (Unverified , 03/11/19) Patient Home Medication List Home Medication List Reviewed: Yes Physical Exam-Cardiology Physical Exam Vital Signs/I&O 03/13/19 03/13/19 03/13/19 03/13/19 02:00 03:00 04:00 04:00 Pulse 86 87 82 Resp 27 28 26 B/P (MAP) 123/74 (90) 113/67 (82) 122/70 (87) Pulse Ox 95 92 92 O2 Delivery Room Air Room Air OxyMask Room Air O2 Flow Rate 2.00 03/13/19 03/13/19 03/13/19 03/13/19 05:00 06:00 07:00 07:00 Pulse 81 79 83 79 Resp 23 21 22 B/P (MAP) 110/68 (82) 124/76 (92) 125/74 (91) Pulse Ox 92 93 92 O2 Delivery Room Air Room Air Room Air 03/13/19 03/13/19 03/13/19 03/13/19 08:00 08:00 08:00 09:00 Temp 37.1 Pulse 87 102 Resp 27 13 B/P (MAP) 123/76 (92) 90/75 (80) Pulse Ox 96 95 96 O2 Delivery Room Air Nasal Cannula Room Air O2 Flow Rate 2.00 03/13/19 03/13/19 03/13/19 03/13/19 10:00 11:00 12:00 12:00 Temp 36.4 Pulse 81 75 71 Resp 21 17 25 B/P (MAP) 137/65 (89) 110/66 (81) 118/73 (88) Pulse Ox 97 97 97 O2 Delivery Room Air Room Air Room Air 03/13/19 03/13/19 12:13 12:34 Pulse 70 Pulse Ox 96 O2 Delivery Nasal Cannula O2 Flow Rate 2.00 03/13/19 00:00 Intake Total 2180 ml Output Total 900 ml Balance 1280 ml Capillary Refill : Less Than 3 Seconds Constitutional: appears stated age, AAO x 3, apparent distress, well-developed, well-nourished HEENT: PERRL; No discharge; hearing is well preserved, oral hygience is good; No ulceration, No xanthelasmas are seen Neck: No carotid bruit; carotid pulses are 2 + bilaterally Respiratory: chest is bilaterally symmetric, lungs clear to auscultation Cardiovascular: regular rate-rhythm, S1 and S2 Gastrointestinal: soft, tenderness, audible bowel sounds; No spleenomegaly Rectal: deferred Extremities: normal range of motion, non-tender, normal inspection; No clubbing, No cyanosis; no lower extremity edema bilateral; No significant edema Neurologic/Psychiatric: no motor/sensory deficits, alert, normal mood/affect, oriented x 3, power is 5/5 both on sides Skin: normal color, warm/dry; No rash, No ulcerations Data Review Labs Laboratory Tests 03/12/19 16:04: Glucometer 164H 03/12/19 16:30: Blood Gas Puncture Site RT RAD, Blood Gas Patient Temperature 36.2, Arterial Blood pH 7.49H, Arterial Blood Partial Pressure CO2 28L, Arterial Blood Partial Pressure O2 70L, Arterial Blood HCO3 21L, Arterial Blood Total CO2 21.8, Arterial Blood Oxygen Saturation 96, Arterial Blood Base Excess -2.1, Gomez Test POS, Blood Gas Ventilator Setting NO, Blood Gas Inspired Oxygen RA 03/12/19 16:33: Lactic Acid Level 1.47, B-Type Natriuretic Peptide 207.3H 03/12/19 21:17: Glucometer 175H 03/13/19 01:16: White Blood Count 14.8H, Red Blood Count 3.77L, Hemoglobin 10.6L, Hematocrit 33L , Mean Corpuscular Volume 87, Mean Corpuscular Hemoglobin 28, Mean Corpuscular Hemoglobin Concent 32, Red Cell Distribution Width 14.6H, Platelet Count 107L, Mean Platelet Volume 12.6H, Neutrophils (%) (Auto) 83H, Lymphocytes (%) (Auto) 7L, Monocytes (%) (Auto) 9, Eosinophils (%) (Auto) 1, Basophils (%) (Auto) 0, Neutrophils # (Auto) 12.2H, Lymphocytes # (Auto) 1.1, Monocytes # (Auto) 1.3H, Eosinophils # (Auto) 0.2, Basophils # (Auto) 0.0, Sodium Level 135, Potassium Level 4.1, Chloride Level 108H, Carbon Dioxide Level 18L, Anion Gap 9, Blood Urea Nitrogen 9, Creatinine 0.71, Estimat Glomerular Filtration Rate > 60, BUN/Creatinine Ratio 13, Glucose Level 195H, Lactic Acid Level 0.95, Calcium Level 9.0, Phosphorus Level 1.4L, Magnesium Level 1.8, Troponin I < 0.028, B- Type Natriuretic Peptide 166.0H, Albumin 2.7L 03/13/19 06:20: Glucometer 149H 03/13/19 11:11: Glucometer 187H 03/13/19 12:07: Troponin I < 0.028 Microbiology 03/11/19 Blood Culture - Preliminary, Resulted Escherichia coli 03/11/19 Urine Culture - Final, Complete Escherichia coli 03/11/19 Throat Culture - Preliminary, Resulted No Beta Strep isolated ECG Impression ECG Initial ECG Rhythm: S.Tach A/P-Cardiology Assessment/Admission Diagnosis Severe sepsis, Bacteremia, UTI/pyelonephritis, Sinus tachycardia, Mildly elevated BNP, Diabetes. Chest pain Plan Severe sepsis, Bacteremia, UTI/pyelonephritis, aggressive sepsis protocol with fluid resuscitation and broad-spectrum IV antibiotics. Sinus tachycardia, likely due to severe systemic illness. Mildly elevated BNP, unlikely acute congestive heart failure. Likely due to severe systemic illness. Echocardiogram. Mild chest discomfort, first troponin negative. Will do serial troponin. Diabetes. Thank you for your consultation. Please call me if you have any questions. Josiah Minor MD, FACP, FACC, FSCAI, FHRS, CCDS Interventional Cardiology Cardiac Electrophysiology Vascular Medicine and Endovascular Interventions Clinical Quality Measures DVT/VTE Risk/Contraindication: Risk Factor Score Per Nursin RFS Level Per Nursing on Admit: 4+=Very High Jayda MINOR MD Mar 13, 2019 10:18
[2019-03-13] MEDS ORDERED: CEFEPIME INJECTION 1,000 MG in WATER (STERILE) FOR INJECTION 10 ML IV SCH (12:00)
--- NOTE | 2019-03-13 12:47 | Progress Note - Hospitalist ---
Subjective HPI/CC On Admission Date Seen by Provider: Mar 13, 2019 Time Seen by Provider: 11:00 Chief complaint: Sepsis with pyelonephritis History of present illness: This is a 58-year-old white female who presented to the ER with fever and chills found to have sepsis with pyelonephritis and high risk for decompensation so she was given aggressive IV fluids along with IV antibiotics empirically and placed in the ICU overnight. At this current time patient is doing much better she only speaks Slovenian so I did communicate with her and basic Slovenian terms and currently she is doing much better. She is coughing but it is nonproductive. We will transfer her to fourth floor since she has improved. Subjective/Events-last exam Patient was transported up to ICU again yesterday afternoon due to hypoxia on ABG Lasix was given by Dr. Du which is improved the status immensely and blood pressure remained stable Reviewed her culture and blood culture and discontinued cefepime placed on Rocephin to narrow the spectrum Updated at the bedside Fluids have been discontinued Max temp was 99 Review of Systems General: Fatigue Pulmonary: Dyspnea Focused Exam Lactate Level 03/12/19 01:24: Lactic Acid Level 1.20 03/12/19 16:33: Lactic Acid Level 1.47 03/13/19 01:16: Lactic Acid Level 0.95 Objective Exam Vital Signs Vital Signs Date Time Temp Pulse Resp B/P (MAP) Pulse Ox O2 Delivery O2 Flow Rate FiO2 03/13/19 12:34 70 03/13/19 12:13 96 Nasal Cannula 2.00 03/13/19 12:00 25 118/73 (88) 03/13/19 12:00 36.4 Capillary Refill : Less Than 3 Seconds General Appearance: No Apparent Distress, WD/WN, Chronically ill Respiratory: Chest Non Tender, No Accessory Muscle Use, No Respiratory Distress, Crackles, Decreased Breath Sounds Cardiovascular: Regular Rate, Rhythm Neurologic/Psychiatric: Alert, Oriented x3, No Motor/Sensory Deficits, Normal Mood/Affect Results/Procedures Lab Laboratory Tests 03/13/19 01:16 Patient resulted labs reviewed. Assessment/Plan Assessment and Plan Assess & Plan/Chief Complaint Assessment: Sepsis UTI Diabetes mellitus Hypoxia required transfer back to ICU yesterday Hypotension Plan: IV antibiotics changed to Rocephin Monitor oxygen level Monitor blood pressure Diagnosis/Problems Diagnosis/Problems (1) Sepsis Status: Acute Qualifiers: Sepsis type: sepsis due to unspecified organism Sepsis acute organ dysfunction status: without acute organ dysfunction Qualified Codes: A41.9 - Sepsis, unspecified organism (2) Pyelonephritis Status: Acute (3) UTI (urinary tract infection) Clinical Quality Measures DVT/VTE Risk/Contraindication: Risk Factor Score Per Nursin RFS Level Per Nursing on Admit: 4+=Very High AVRIL LARA DO Mar 13, 2019 12:47
--- NOTE | 2019-03-13 16:05 | NUR ---
THIS NURSE NOTIFIED DR LARSON OF ECHO RESULTS NO NEW ORDERS AT THIS TIME.
[2019-03-13] MEDS ORDERED: ACET-575 PO (16:59)
[2019-03-13] MEDS ORDERED: METF-478 PO (16:59)
[2019-03-13] MEDS ORDERED: ATOR20TA66 PO (16:59)
[2019-03-13] MEDS ORDERED: LEVO25TA5 PO (16:59)
[2019-03-13] MEDS ORDERED: GABA-486 PO (16:59)
[2019-03-13] MEDS ORDERED: SERT100T8 PO (16:59)
[2019-03-13] MEDS ORDERED: LISI10TA2 PO (16:59)
[2019-03-13] MEDS ORDERED: GLIP10TA13 PO (16:59)
--- NOTE | 2019-03-13 19:58 | NUR ---
PT TRANSFERRED FROM ICU, REPORT RECEIVED FROM RAUL. PT WAS INTRODUCED T HER ROOM. VOICES NO COMPLAINS AT THIS TIME.
[2019-03-13] MEDS ORDERED: cefTRIAXone FOR IV USE 1,000 MG in WATER (STERILE) FOR INJECTION 10 ML IV SCH (21:00)
[2019-03-13] MEDS ORDERED: cefTRIAXone 1,000 MG IV (ROCEPHIN) VIAL ONE (21:51)
[2019-03-14 00:38] VITALS: BP 120/77
[2019-03-14 04:00] VITALS: BP 114/65
[2019-03-14 05:02] VITALS: BP 114/65
[2019-03-14 05:27] LABS: BASOPHILS % (AUTO) 0 % (0-10); EOSINOPHILS # (AUTO) 0.4 10^3/uL (0.0-0.3); EOSINOPHILS % (AUTO) 4 % (0-10); HEMATOCRIT 33 % (35-52); HEMOGLOBIN 10.6 G/DL (11.5-16.0); LYMPHOCYTES # (AUTO) 1.3 X 10^3 (1.0-4.0); LYMPHOCYTES % (AUTO) 13 % (12-44); MEAN CORPUSCULAR HEMOGLOBIN 28 PG (25-34); MEAN CORPUSCULAR HGB CONC 32 G/DL (32-36); MEAN CORPUSCULAR VOLUME 87 FL (80-99); MEAN PLATELET VOLUME 12.2 FL (7.4-10.4); MONOCYTES # (AUTO) 0.9 X 10^3 (0.0-1.0); MONOCYTES % (AUTO) 10 % (0-12); NEUTROPHILS # (AUTO) 7.2 X 10^3 (1.8-7.8); NEUTROPHILS % (AUTO) 73 % (42-75); PLATELET COUNT 164 10^3/uL (130-400); RED CELL DISTRIBUTION WIDTH 14.6 % (10.0-14.5); WHITE BLOOD COUNT 9.9 10^3/uL (4.3-11.0)
[2019-03-14 06:00] LABS: BUN/CREATININE RATIO 15; CALCIUM 8.6 MG/DL (8.5-10.1); CARBON DIOXIDE 21 MMOL/L (21-32); CHLORIDE 107 MMOL/L (98-107); CREATININE SERUM 0.71 MG/DL (0.60-1.30); GFR ESTIMATED > 60; GLUCOSE 145 MG/DL (70-105); MAGNESIUM 1.7 MG/DL (1.6-2.4); PHOSPHORUS 2.7 MG/DL (2.3-4.7); POTASSIUM 4.1 MMOL/L (3.6-5.0); SODIUM 136 MMOL/L (135-145)
[2019-03-14] MEDS: POTASSIUM CL 10MEQ/50ML IVPB 50 ML IV SCH (06:06)
[2019-03-14] MEDS: inSUlin ASPART (NovoLOG) 1 UNIT/0.01 ML (CHARGE PER UNIT) SC SCH (06:06)
[2019-03-14] MEDS: KCL 20 MEQ TAB (K-DUR) PO SCH (06:06)
[2019-03-14] MEDS: MAGNESIUM 1 GM/100 ML IVPB 100 ML IV SCH ×3 (06:30→08:02)
[2019-03-14] MEDS: CATHETER FLUSH 10 ML SYR IV SCH (06:42)
[2019-03-14 07:20] VITALS: BP 115/78
[2019-03-14] MEDS: ENOXAPARIN 40 MG/0.4 ML (LOVENOX) SYR SC SCH (09:06)
[2019-03-14] MEDS ORDERED: CEFD300C3 PO (10:20)
--- NOTE | 2019-03-14 10:20 | Discharge Summary ---
Discharge Summary Hospital Course Was the Problem List Reviewed?: Yes Problems/Dx: (1) Sepsis Status: Acute Qualifiers: Qualified Codes: A41.9 - Sepsis, unspecified organism (2) Pyelonephritis Status: Acute (3) UTI (urinary tract infection) Hospital Course Date of Admission: Mar 11, 2019 at 22:57 Admission Diagnosis : Family Physician/Provider: No,Local Physician Date of Discharge: 03/14/19 Discharge Diagnosis: [Severe sepsis, pyelonephritis, volume overload, DM, herpes labialis Hospital Course: Hospital course: Pt had an eventful hospital course for four days, she was admitted to the ICU with sepsis, pyelonephritis and UTI, placed on broad- spectrum antibiotics and IV fluids but she did have some volume overload that required transfer back to the ICU after transfer earlier in the day Thursday to the fourth floor. She did undergo cardiac evaluation, Lasix was given, BP remained stable, she was able to ambulate and Pt will finish her antibiotic treatment with close follow-up with [facility]. She did have some cold sores for the first time that she has experienced that so she was placed on Valtrex and will finish that treatment as an outpatient. Labs and Pending Lab Test: Laboratory Tests 03/13/19 11:11: Glucometer 187H 03/13/19 12:07: Troponin I < 0.028 03/13/19 15:29: Glucometer 210H 03/13/19 17:57: Troponin I < 0.028 03/13/19 21:14: Glucometer 133H 03/14/19 05:20: White Blood Count 9.9, Red Blood Count 3.78L, Hemoglobin 10.6L, Hematocrit 33L, Mean Corpuscular Volume 87, Mean Corpuscular Hemoglobin 28, Mean Corpuscular Hemoglobin Concent 32, Red Cell Distribution Width 14.6H, Platelet Count 164, Mean Platelet Volume 12.2H, Neutrophils (%) (Auto) 73, Lymphocytes (%) (Auto) 13, Monocytes (%) (Auto) 10, Eosinophils (%) (Auto) 4, Basophils (%) (Auto) 0, Neutrophils # (Auto) 7.2, Lymphocytes # (Auto) 1.3, Monocytes # (Auto) 0.9, Eosinophils # (Auto) 0.4H, Basophils # (Auto) 0.0, Sodium Level 136, Potassium Level 4.1, Chloride Level 107, Carbon Dioxide Level 21, Anion Gap 8, Blood Urea Nitrogen 11, Creatinine 0.71, Estimat Glomerular Filtration Rate > 60, BUN/Creatinine Ratio 15, Glucose Level 145H, Calcium Level 8.6, Phosphorus Level 2.7, Magnesium Level 1.7 03/14/19 05:32: Glucometer 132H Microbiology 03/12/19 MRSA Screen - Final, Complete MRSA not isolated 03/11/19 Blood Culture - Preliminary, Resulted Escherichia coli 03/11/19 Urine Culture - Final, Complete Escherichia coli Home Meds Active Reported Acetaminophen Pm Caplet (Acetaminophen/Diphenhydramine) 1 Each Tablet 1 Each PO Q4H PRN Metformin HCl ER (Metformin HCl) 500 Mg Tab.er.24 500 Mg PO BID WITH MEALS Lisinopril 10 Mg Tablet 10 Mg PO DAILY Atorvastatin Calcium 20 Mg Tablet 20 Mg PO DAILY Gabapentin 100 Mg Capsule 100 Mg PO TID Levothyroxine Sodium 25 Mcg Tablet 25 Mcg PO DAILY Glipizide 10 Mg Tablet 10 Mg PO DAILY Sertraline HCl 100 Mg Tablet 100 Mg PO DAILY Assessment/Pt Instructions [facility] 1 week Discharge Planning: <30 minutes discharge planning Discharge Instructions Discharge Diet: No Restrictions Activity as Tolerated: Yes Discharge Physical Examination Vital Signs Vital Signs Date Time Temp Pulse Resp B/P (MAP) Pulse Ox O2 Delivery O2 Flow Rate FiO2 03/14/19 07:20 37.3 77 20 115/78 (90) 97 Room Air 03/13/19 20:00 2.00 General Appearance: No Apparent Distress, WD/WN Respiratory: Lungs Clear Cardiovascular: Regular Rate, Rhythm Neurologic/Psychiatric: Alert, Oriented x3, No Motor/Sensory Deficits, Normal Mood/Affect Allergies: Coded Allergies: No Known Drug Allergies (Unverified , 03/11/19) Discharge Summary Date of Admission Mar 11, 2019 at 22:57 Date of Discharge Discharge Date: Mar 14, 2019 Admission Diagnosis Assessment: Sepsis Pyelonephritis Cough Hyperglycemia Plan: Transfer to fourth floor Continue IV fluids but slower rate IV antibiotics Check hemoglobin A1c suspicion for diabetes Discharge Diagnosis Assessment: Sepsis UTI Diabetes mellitus Hypoxia required transfer back to ICU yesterday Hypotension Plan: IV antibiotics changed to Rocephin Monitor oxygen level Monitor blood pressure (1) Sepsis Status: Acute Qualifiers: Qualified Codes: A41.9 - Sepsis, unspecified organism (2) Pyelonephritis Status: Acute (3) UTI (urinary tract infection) Clinical Quality Measures DVT/VTE Risk/Contraindication: Risk Factor Score Per Nursin RFS Level Per Nursing on Admit: 4+=Very High AVRIL LARA DO Mar 14, 2019 10:20
[2019-03-14] MEDS ORDERED: VALA10004 PO (10:21)
[2019-03-14] MEDS ORDERED: VALACYCLOVIR 500 MG TAB (VALTREX) PO SCH ×3 (10:45→21:00)
--- NOTE | 2019-03-14 11:51 | Physical Therapy Progress Note ---
Therapy Progress Note Patient discharged before evaluation was initiated. Per nursing staff patient was moving around and ambulating in room [facility]. STACY SERRANO PT Mar 14, 2019 11:51
--- NOTE | 2019-03-14 12:38 | Cardiology Progress Note ---
Cardiology SOAP Progress Note Subjective: Feeling better. Objective: I&O/Vital Signs 03/14/19 03/14/19 03/14/19 03/14/19 00:38 04:00 05:02 07:20 Temp 36.9 37.4 37.4 37.3 Pulse 66 80 80 77 Resp 18 18 18 20 B/P (MAP) 120/77 (91) 114/65 (81) 114/65 (81) 115/78 (90) Pulse Ox 92 95 95 97 O2 Delivery Room Air Room Air Room Air Room Air 03/14/19 11:16 B/P (MAP) 03/14/19 00:00 Intake Total 450 ml Output Total 700 ml Balance -250 ml Constitutional: appears stated age, AAO x 3, well-developed, well-nourished Respiratory: chest is bilaterally symmetric, lungs clear to auscultation Cardiovascular: regular rate-rhythm, S1 and S2 Gastrointestional: soft, tenderness, audible bowel sounds; No spleenomegaly Extremities: normal range of motion, non-tender, normal inspection; No clubbing, No cyanosis; no lower extremity edema bilateral; No significant edema Neurologic/Psychiatric: no motor/sensory deficits, alert, normal mood/affect, oriented x 3, power is 5/5 both on sides Skin: normal color, warm/dry; No rash, No ulcerations Results/Procedures: Labs Laboratory Tests 03/13/19 15:29: Glucometer 210H 03/13/19 17:57: Troponin I < 0.028 03/13/19 21:14: Glucometer 133H 03/14/19 05:20: White Blood Count 9.9, Red Blood Count 3.78L, Hemoglobin 10.6L, Hematocrit 33L, Mean Corpuscular Volume 87, Mean Corpuscular Hemoglobin 28, Mean Corpuscular Hemoglobin Concent 32, Red Cell Distribution Width 14.6H, Platelet Count 164, Mean Platelet Volume 12.2H, Neutrophils (%) (Auto) 73, Lymphocytes (%) (Auto) 13, Monocytes (%) (Auto) 10, Eosinophils (%) (Auto) 4, Basophils (%) (Auto) 0, Neutrophils # (Auto) 7.2, Lymphocytes # (Auto) 1.3, Monocytes # (Auto) 0.9, Eosinophils # (Auto) 0.4H, Basophils # (Auto) 0.0, Sodium Level 136, Potassium L evel 4.1, Chloride Level 107, Carbon Dioxide Level 21, Anion Gap 8, Blood Urea Nitrogen 11, Creatinine 0.71, Estimat Glomerular Filtration Rate > 60, BUN/Creatinine Ratio 15, Glucose Level 145H, Calcium Level 8.6, Phosphorus Level 2.7, Magnesium Level 1.7 03/14/19 05:32: Glucometer 132H Microbiology 03/12/19 MRSA Screen - Final, Complete MRSA not isolated 03/11/19 Blood Culture - Preliminary, Resulted Escherichia coli 03/11/19 Urine Culture - Final, Complete Escherichia coli A/P: Assessment/Dx: Severe sepsis, Bacteremia, UTI/pyelonephritis, Sinus tachycardia, Mildly elevated BNP, Diabetes. Chest pain Plan: Severe sepsis, Bacteremia, UTI/pyelonephritis, aggressive sepsis protocol with fluid resuscitation and broad-spectrum IV antibiotics. Defer to the primary team. Sinus tachycardia, likely due to severe systemic illness. Mildly elevated BNP, unlikely acute congestive heart failure. Likely due to severe systemic illness. Echocardiogram done 03/13/2019 shows normal LV function with no significant valvular heart disease. Mild chest discomfort, serial troponin negative. Diabetes. Thank you for your consultation. Please call me if you have any questions. Josiah Minor MD, FACP, FACC, FSCAI, FHRS, CCDS Interventional Cardiology Cardiac Electrophysiology Vascular Medicine and Endovascular Interventions Focused Exam Lactate Level 03/12/19 01:24: Lactic Acid Level 1.20 03/12/19 16:33: Lactic Acid Level 1.47 03/13/19 01:16: Lactic Acid Level 0.95 Jayda MINOR MD Mar 14, 2019 12:38
--- NOTE | 2019-03-15 10:32 | Physician Query Clarification ---
PQ-Further Specificity Admission/Discharge Admission Date: Mar 11, 2019 at 22:57 Discharge Date: Mar 14, 2019 at 11:15 The medical record reflects the following clinical scenario: History/Risk Factors: Sepsis, Acute pyelonephritis Clinical Findings: urine and blood cultures growing out e coli Treatment: IV Cepfepime, IV Rocephin Question: Can you further specify the causitive organism for the sepsis and acute pyelonephritis per the clinical indicators above? Please document a response in the Progress Notes or Discharge Summary. 1. e. coli sepsis and acute pyelonephritis 2. e.coli a contaminant no causitive organism determined for the sepsis and acute pyelonephritis 3. Other, with explanation of the clinical findings. 4. Clinically undetermined, no explanation for the clinical findings. PHYSICIAN RESPONSE Can you specify per above: 1 Please remember a lack of response to the above will prompt a phone page by CDI/Coding staff. In responding to this query, please exercise your independent professional judgment. The purpose of this communication is to more accurately reflect the complexity of your patients condition. The fact that a question is asked does not imply that any particular answer is desired or expected. Thank you for your timely response to this clarification. Requestors name: Alek THIS PHYSICIAN QUERY FORM IS A PERMANENT PART OF THE MEDICAL RECORD ALEK CHAIREZ Mar 15, 2019 10:32 AVRIL LARA DO Mar 15, 2019 20:27
--- NOTE | 2019-03-15 10:35 | Physician Query Clarification ---
PQ-Further Specificity Admission/Discharge Admission Date: Mar 11, 2019 at 22:57 Discharge Date: Mar 14, 2019 at 11:15 The medical record reflects the following clinical scenario: History/Risk Factors: Sepsis, acute pyelonephritis Clinical Findings: mild pulmonary edema Treatment: 40 mg IV lasix Question: Can you further specify the acuity of the mild pulmonary edema per the clinical indicators above? Please document a response in the Progress Notes or Discharge Summary. 1. acute pulmonary edema 2. chronic pulmonary edema 3. Other, with explanation of the clinical findings. 4. Clinically undetermined, no explanation for the clinical findings. PHYSICIAN RESPONSE Can you specify per above: 1 Please remember a lack of response to the above will prompt a phone page by CDI/Coding staff. In responding to this query, please exercise your independent professional judgment. The purpose of this communication is to more accurately reflect the complexity of your patients condition. The fact that a question is asked does not imply that any particular answer is desired or expected. Thank you for your timely response to this clarification. Requestors name: Alek THIS PHYSICIAN QUERY FORM IS A PERMANENT PART OF THE MEDICAL RECORD ALEK CHAIREZ Mar 15, 2019 10:35 AVRIL LARA DO Mar 15, 2019 20:27
--- NOTE | 2019-03-15 10:37 | Physician Query Clarification ---
PQ-Intro New Diagnosis Admission/Discharge Admission Date: Mar 11, 2019 at 22:57 Discharge Date: Mar 14, 2019 at 11:15 The medical record reflects the following clinical scenario: History/Risk Factors: Sepsis, acute pyelonephritis Clinical Findings: 03/13 CXR - Rt perihilar infiltrate suspect pneumonia Treatment: IV Cefepime, IV Rocephin Question: What condition best reflects the above clinical scenario? Please document a response in the Progress Noter or Discharge Summary. 1. Pneumonia 2. No pneumonia, condition ruled out 3. Other, with explanation of the clinical findings. 4. Clinically undetermined, no explanation for the clinical findings. PHYSICIAN RESPONSE What condition reflects above: 2 Please remember a lack of response to the above will prompt a phone page by CDI/Coding staff. In responding to this query, please exercise your independent professional judgment. The purpose of this communication is to more accurately reflect the complexity of your patients condition. The fact that a question is asked does not imply that any particular answer is desired or expected. Thank you for your timely response to this clarification. Requestors name: Alek THIS PHYSICIAN QUERY FORM IS A PERMANENT PART OF THE MEDICAL RECORD ALEK CHAIREZ Mar 15, 2019 10:37 AVRIL LARA DO Mar 15, 2019 20:28
== END 2019-03-14 11:15 | disposition home or self-care (01) | DRG 871 ==
LOC: ER 20:57 → ICU 22:57 → 4TH 03-12 11:20 → ICU 03-12 18:10 → 4TH 03-13 19:57
PROVIDERS: ADMIT Internal Medicine; ATTEND Internal Medicine
DX: A41.51 Sepsis due to Escherichia coli [E. coli] (principal); N10 Acute pyelonephritis; J81.0 Acute pulmonary edema; E87.1 Hypo-osmolality and hyponatremia; E11.65 Type 2 diabetes mellitus with hyperglycemia; I95.9 Hypotension, unspecified; R09.02 Hypoxemia; F41.9 Anxiety disorder, unspecified
CPT/HCPCS: 36415; 36600; 71045; 71046; 80048; 80053; 81000; 82040; 82805; 82962; 83036; 83605; 83735; 83880; 84100; 84484; 85007; 85025; 85027; 87040; 87077; 87081; 87088; 87186; 87430; 87804; 93005; 93306; 96361; 96374

== ENCOUNTER 2020-07-12 12:09 | Emergency (ER) | payer SELFPAY ==
[~2020-07-12] VITALS: Ht 162 cm; Wt 72.5 kg
[~2020-07-12 12:09] MED LIST: ACET-575 PO; ATOR20TA66 PO; CEFD300C3 PO; GABA-486 PO; GLIP10TA13 PO; LEVO25TA5 PO; LISI10TA25 PO; METF-478 PO; SERT-414 PO; VALA10004 PO
--- NOTE | 2020-07-12 13:13 | Diagnostic Imaging Report ---
INDICATION: COVID, SOA COMPARISON: 03/13/2019 FINDINGS: Single frontal view of the chest demonstrates mild enlargement cardiac silhouette. Pulmonary vasculature is within normal limits. There is subtle generalized interstitial prominence on the right. No focal alveolar consolidation, large effusion, no pneumothorax is seen. Osseous structures show no gross acute abnormalities. IMPRESSION: 1. Subtle asymmetric interstitial opacities throughout the right lung. Findings could be on the basis of interstitial pneumonia or edema. Clinical correlation is advised. 2. Borderline enlargement cardiac silhouette. Dictated by: Dictated on workstation # [id number]
[2020-07-12] MEDS ORDERED: BENZONATATE 100 MG (TESSALON) CAPSULE PO ONE (13:15)
[2020-07-12] MEDS ORDERED: KETOROLAC 30 MG/ML VIAL IVP ONE (13:15)
[2020-07-12 13:16] LABS: BASOPHILS % (AUTO) 0 % (0-10); EOSINOPHILS # (AUTO) 0.1 10^3/uL (0.0-0.3); EOSINOPHILS % (AUTO) 1 % (0-10); HEMATOCRIT 43 % (35-52); HEMOGLOBIN 14.1 g/dL (11.5-16.0); LYMPHOCYTES # (AUTO) 1.2 10^3/uL (1.0-4.0); LYMPHOCYTES % (AUTO) 20 % (12-44); MEAN CORPUSCULAR HEMOGLOBIN 28 pg (25-34); MEAN CORPUSCULAR HGB CONC 33 g/dL (32-36); MEAN CORPUSCULAR VOLUME 85 fL (80-99); MEAN PLATELET VOLUME 12.2 fL (9.0-12.2); MONOCYTES # (AUTO) 0.5 10^3/uL (0.0-1.0); MONOCYTES % (AUTO) 9 % (0-12); NEUTROPHILS # (AUTO) 4.2 10^3/uL (1.8-7.8); NEUTROPHILS % (AUTO) 70 % (42-75); PLATELET COUNT 172 10^3/uL (130-400)
[2020-07-12 13:25] LABS: ALBUMIN 3.8 GM/DL (3.2-4.5); CHLORIDE 101 MMOL/L (98-107); POTASSIUM 4.4 MMOL/L (3.6-5.0); SODIUM 134 MMOL/L (135-145)
[2020-07-12 13:26] LABS: CALCIUM 9.2 MG/DL (8.5-10.1)
[2020-07-12 13:27] LABS: GLUCOSE 221 MG/DL (70-105)
[2020-07-12 13:28] LABS: TOTAL PROTEIN 7.3 GM/DL (6.4-8.2)
[2020-07-12 13:29] LABS: BILIRUBIN,TOTAL 0.6 MG/DL (0.1-1.0); CARBON DIOXIDE 24 MMOL/L (21-32)
[2020-07-12 13:31] LABS: ALKALINE PHOSPHATASE 107 U/L (40-136); CREATININE SERUM 0.86 MG/DL (0.60-1.30); GFR ESTIMATED > 60
[2020-07-12 13:32] LABS: BUN/CREATININE RATIO 10
[2020-07-12 13:34] LABS: ALANINE AMINOTRANSFERASE 51 U/L (0-55)
--- NOTE | 2020-07-12 13:37 | ED General ---
General Chief Complaint: Cough/Cold/Flu Symptoms Stated Complaint: COVID SYMPTOMS Nursing Triage Note: pt presents to ed via pov from home with complaints of fever, body aches, lethargy, bucio, and cp. pt reports her s/s started on 07/01 and she tested positive for covid on 07/09. 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 Patient reports being COVID+ as of onset 11 days ago, after trip to [place]. Sx include subjective fever, body aches, bitter taste in mouth, headache, cough productive of white sputum, SOB, chest pain with deep breathing and fatigue. Patient states sx have been progressively worsening with associated loss of appetite and increasing SOB, prompting her arrival. She reports her has been experiencing the same symptoms as well. Denies abdominal pain, diarrhea, vision changes, hearing changes, neck pain, and extremity pain. (RIAN ORNELAS MED STUDENT) Allergies and Home Medications Allergies Coded Allergies: No Known Drug Allergies (Unverified , 03/11/19) Home Medications Acetaminophen/Diphenhydramine 1 Each Tablet, 1 EACH PO Q4H PRN for PAIN-MILD (1- 4), (Reported) Atorvastatin Calcium 20 Mg Tablet, 20 MG PO DAILY, (Reported) Azithromycin 250 Mg Tablet, 250 MG PO UD TAKE 2 TABLETS ON DAY ONE THEN TAKE 1 TABLET DAILY FOR FOUR MORE DAYS Prescribed by: JOSE MARIA CORONADO on 07/12/20 1546 Benzonatate 100 Mg Capsule, 200 MG PO TID PRN for COUGH Prescribed by: JOSE MARIA CORONADO on 07/12/20 1546 Cefdinir 300 Mg Capsule, 300 MG PO BID Prescribed by: AVRIL LARA on 03/14/19 1020 Gabapentin 100 Mg Capsule, 100 MG PO TID, (Reported) Glipizide 10 Mg Tablet, 10 MG PO DAILY, (Reported) Levothyroxine Sodium 25 Mcg Tablet, 25 MCG PO DAILY, (Reported) Lisinopril 10 Mg Tablet, 10 MG PO DAILY, (Reported) Metformin HCl 500 Mg Tab.er.24, 500 MG PO BID WITH MEALS, (Reported) Sertraline HCl 100 Mg Tablet, 100 MG PO DAILY, (Reported) Valacyclovir HCl 1,000 Mg Tablet, 1,000 MG PO BID Prescribed by: AVRIL LARA on 03/14/19 1021 Patient Home Medication List Home Medication List Reviewed: Yes (JOSE MARIA VEGA MD) Review of Systems Review of Systems Constitutional: fever (subjective), malaise EENTM: No hearing loss, No vision loss Respiratory: cough, phlegm, short of breath Cardiovascular: chest pain (with deep breathing); No edema Gastrointestinal: No abdominal pain, No diarrhea, No vomiting Genitourinary: No frequency, No hematuria Musculoskeletal: back pain, joint pain, muscle pain Skin: No pruritus, No rash Psychiatric/Neurological: Denies Anxiety; Headache Hematologic/Lymphatic: Denies Easy Bleeding, Denies Easy Bruising (RIAN BOWLING) Past [id number]-Pjdoni-Iihdqv Hx Patient Social History Alcohol Use: Denies Use Smoking Status: Never a Smoker 2nd Hand Smoke Exposure: No Recent Infectious Disease Expo: No Recent Hopitalizations: No (RIAN ORNELAS) Immunizations Up To Date Date of Influenza Vaccine: Dec 18, 2019 (RIAN ORNELAS) Seasonal Allergies Seasonal Allergies: No (RIAN ORNELAS) Past Medical History Surgeries: Yes Hysterectomy Respiratory: Yes Asthma Cardiac: Yes Hypertension Neurological: No Genitourinary: No Gastrointestinal: No Musculoskeletal: No Endocrine: Yes Diabetes, Non-Insulin dep HEENT: No Cancer: No Psychosocial: No Integumentary: No (RIAN ORNELAS) Physical Exam Vital Signs Vital Signs - First Documented (JOSE MARIA VEGA MD) Vital Signs Capillary Refill : Less Than 3 Seconds (RIAN ORNELAS) Height, Weight, BMI Height: '" Weight: lbs. oz. kg; 27.00 BMI Method: Eyes: Bilateral Eye Normal Inspection, Bilateral Eye PERRL, Bilateral Eye EOMI HEENT: PERRL/EOMI, Pharynx Normal, Moist Mucous Membranes Neck: Full Range of Motion, Normal Inspection, Non Tender Respiratory: Chest Non Tender, Normal Breath Sounds, No Accessory Muscle Use Cardiovascular: Regular Rate, Rhythm, No Edema, Normal Peripheral Pulses Gastrointestinal: Normal Bowel Sounds, Non Tender Back: No CVA Tenderness, No Vertebral Tenderness Extremity: Normal Capillary Refill, No Calf Tenderness Neurologic/Psychiatric: Alert, No Motor/Sensory Deficits, Normal Mood/Affect Skin: Normal Color, Warm/Dry (RIAN ORNELAS MED STUDENT) General Appearance: No Apparent Distress (But appears uncomfortable) (JOSE MARIA VEGA MD) Progress/Results/Core Measures Suspected Sepsis Recent Fever Within 48 Hours: Yes Infection Criteria Present: Documented Infection New/Unexplained Altered Menta: No Sepsis Screen: Possible Severe Sepsis Risk SIRS Temperature: Pulse: 86 Respiratory Rate: 40 Laboratory Tests 07/12/20 12:58: White Blood Count 6.0 Blood Pressure 118 /74 Mean: 89 Laboratory Tests 07/12/20 12:58: Platelet Count 172 (RIAN ORNELAS MED STUDENT) Results/Orders Lab Results Laboratory Tests Test 07/12/20 12:58 Range/Units White Blood Count 6.0 4.3-11.0 10^3/uL Red Blood Count 5.10 3.80-5.11 10^6/uL Hemoglobin 14.1 11.5-16.0 g/dL Hematocrit 43 35-52 % Mean Corpuscular Volume 85 80-99 fL Mean Corpuscular Hemoglobin 28 25-34 pg Mean Corpuscular Hemoglobin Concent 33 32-36 g/dL Red Cell Distribution Width 13.7 10.0-14.5 % Platelet Count 172 130-400 10^3/uL Mean Platelet Volume 12.2 9.0-12.2 fL Immature Granulocyte % (Auto) 1 % Neutrophils (%) (Auto) 70 42-75 % Lymphocytes (%) (Auto) 20 12-44 % Monocytes (%) (Auto) 9 0-12 % Eosinophils (%) (Auto) 1 0-10 % Basophils (%) (Auto) 0 0-10 % Neutrophils # (Auto) 4.2 1.8-7.8 10^3/uL Lymphocytes # (Auto) 1.2 1.0-4.0 10^3/uL Monocytes # (Auto) 0.5 0.0-1.0 10^3/uL Eosinophils # (Auto) 0.1 0.0-0.3 10^3/uL Basophils # (Auto) 0.0 0.0-0.1 10^3/uL Immature Granulocyte # (Auto) 0.1 0.0-0.1 10^3/uL D-Dimer 0.79 H 0.00-0.49 UG/ML Sodium Level 134 L 135-145 MMOL/L Potassium Level 4.4 3.6-5.0 MMOL/L Chloride Level 101 98-107 MMOL/L Carbon Dioxide Level 24 21-32 MMOL/L Anion Gap 9 5-14 MMOL/L Blood Urea Nitrogen 9 7-18 MG/DL Creatinine 0.86 0.60-1.30 MG/DL Estimat Glomerular Filtration Rate > 60 BUN/Creatinine Ratio 10 Glucose Level 221 H 70-105 MG/DL Calcium Level 9.2 8.5-10.1 MG/DL Corrected Calcium 9.4 8.5-10.1 MG/DL Total Bilirubin 0.6 0.1-1.0 MG/DL Aspartate Amino Transf (AST/SGOT) 56 H 5-34 U/L Alanine Aminotransferase (ALT/SGPT) 51 0-55 U/L Alkaline Phosphatase 107 40-136 U/L Lactate Dehydrogenase 181 125-220 U/L C-Reactive Protein High Sensitivity 2.45 H 0.00-0.50 MG/DL Total Protein 7.3 6.4-8.2 GM/DL Albumin 3.8 3.2-4.5 GM/DL Procalcitonin 0.09 <0.10 NG/ML (JOSE MARIA VEGA MD) My Orders Orders - JOSE MARIA VEGA MD Comprehensive Metabolic Panel (07/12/20 12:45) Fibrin Degradation Products (07/12/20 12:45) Procalcitonin (Pct) (07/12/20 12:45) Hs C Reactive Protein (07/12/20 12:45) LDH (07/12/20 12:45) Chest 1 View, Ap/Pa Only (07/12/20 12:45) Cbc With Automated Diff (07/12/20 12:45) Benzonatate Capsule (Tessalon Perles) (07/12/20 13:15) Ketorolac Injection (Toradol Injection) (07/12/20 13:15) Ct Angio Chest W (07/12/20 13:33) Iohexol Injection (Omnipaque 350 Mg/Ml 1 (07/12/20 14:00) Received Contrast (Hold Metformin- Contr (07/12/20 14:00) Sodium Chloride Flush (Catheter Flush Sy (07/12/20 14:00) Ns (Ivpb) (Sodium Chloride 0.9% Ivpb Bag (07/12/20 14:00) (JOSE MARIA VEGA MD) Medications Given in ED (JOSE MARIA VEGA MD) Vital Signs/I&O 07/12/20 07/12/20 07/12/20 12:42 12:42 16:05 Temp 36.9 Pulse 86 77 Resp 40 18 B/P (MAP) 118/74 (89) 110/78 Pulse Ox 93 93 O2 Delivery Room Air Room Air (JOSE MARIA VEGA MD) Vital Signs/I&O Capillary Refill : Less Than 3 Seconds (RIAN ORNELAS MED STUDENT) Blood Pressure Mean: 89 Progress Note : Progress Note Work-upPatient was seen and evaluated by me personally. Patient was interviewed with the floor plan adjuster language line. Was pursued to evaluate her pleuritic chest pain. A Toradol injection was administered for pain and Tessalon Perles were given for cough. These medications significantly improved her symptoms. D- dimer was elevated and CT angiogram was obtained. No pulmonary embolus was identified. Groundglass opacities consistent with COVID-19 were noted. By my interpretation a secondary developing pneumonia cannot be ruled out. For this reason a azithromycin was initiated. Vital signs were stable with oxygen saturations around 93% while in the emergency room on room air. Patient was encouraged to obtain a pulse oximeter and check her oxygen saturations at home. Patient was not hypoxic and no wheezes were heard on exam. Therefore, no steroids were administered or prescribed. See discharge instructions for further discussion. Discharge instructions were reviewed in Swazi via floor plan adjuster. (JOSE MARIA VEGA MD) Diagnostic Imaging Diagonstic Imaging: Xray Plain Films/CT/US/NM/MRI: chest Comments NAME: SIENNA LEGER Gregg [facility] REC#: [id number] PT STATUS: REG ER : 1960 PHYSICIAN: JOSE MARIA VEGA MD ADMIT DATE: 07/12/20/ER Draft Date of Exam:07/12/20 CHEST 1 VIEW, AP/PA ONLY INDICATION: COVID, SOA COMPARISON: 03/13/2019 FINDINGS: Single frontal view of the chest demonstrates mild enlargement cardiac silhouette. Pulmonary vasculature is within normal limits. There is subtle generalized interstitial prominence on the right. No focal alveolar consolidation, large effusion, no pneumothorax is seen. Osseous structures show no gross acute abnormalities. IMPRESSION: 1. Subtle asymmetric interstitial opacities throughout the right lung. Findings could be on the basis of interstitial pneumonia or edema. Clinical correlation is advised. 2. Borderline enlargement cardiac silhouette. Dictated on workstation # [id number] Dict: 07/12/20 1308 Trans: 07/12/20 1312 CV [id number] Interpreted by: PAIRS GARCIA MD Reviewed: Reviewed by Me Diagonstic Imaging: CT Plain Films/CT/US/NM/MRI: chest Comments NAME: SIENNA LEGER [facility] REC#: [id number] PT STATUS: DEP ER : 1960 PHYSICIAN: JOSE MARIA VEGA MD ADMIT DATE: 07/12/20/ER Signed Date of Exam:07/12/20 CT ANGIO CHEST W PROCEDURE: CT angiography Chest TECHNIQUE: After intravenous administration of contrast, thin section axial CT angiography of the chest was performed. 3D MIP reconstructions were made. All CT scans use one or more of the following dose optimizing techniques: automated exposure control, MA and/or KvP adjustment based on a patient size and exam type, or iterative reconstruction. INDICATION: Fever, body aches and Covid positive. Pulmonary embolism suspected. COMPARISON: Chest radiograph from same day FINDINGS: Vasculature: No pulmonary emboli. No CT evidence of pulmonary hypertension or right ventricular strain. Thoracic aorta is normal in caliber. No aortic dissection or pseudoaneurysm. Heart and mediastinum: Visualized thyroid is normal. No supraclavicular, axillary, or intra-thoracic lymphadenopathy. The heart is normal in size without pericardial effusion. Pleura: No pleural effusion or pneumothorax. Lungs and airway: No endoluminal lesion in the trachea or central bronchi. Multifocal randomly distributed groundglass opacities are present. There are some linear areas of atelectasis within the lower lobes. Mild peribronchial thickening. Upper abdomen: Diffuse hypoattenuation liver suggests hepatic steatosis. No acute abnormality upper abdomen. Musculoskeletal: No concerning osseous lesion. IMPRESSION: 1. No pulmonary emboli or acute aortic syndrome. 2. Multifocal pulmonary groundglass opacities have an appearance that would be consistent with patient's reported Covid-19 infection. Dictated by: Dictated on workstation # [id number] Dict: 07/12/20 1406 Trans: 07/12/20 [id number] Interpreted by: POLLO MOORE MD Electronically signed by: POLLO MOORE MD 07/12/20 7431 Reviewed: Reviewed by Me (JOSE MARIA VEGA MD) Departure Impression Primary Impression: COVID-19 Additional Impression: Chest pain, pleuritic Disposition: 01 HOME, SELF-CARE Condition: Improved Departure-Patient Inst. Decision time for Depature: 15:44 (JOSE MARIA VEGA MD) Referrals: NO,LOCAL PHYSICIAN (PCP/Family) Primary Care Physician Patient Instructions: COVID-19 (DC) Add. Discharge Instructions: You may use your previously prescribed medications. For pain or fever use ibuprofen up to 600 mg every 6 hours as needed and/or Tylenol (acetaminophen) up to 1000 mg every 6 hours as needed. Drink plenty of clear liquids to stay well-hydrated. Use Tessalon Perles (benzonatate) as prescribed for cough. Complete your antibiotic as prescribed. Obtain a finger pulse oximeter from the pharmacy and check your oxygen level if you are feeling short of breath. If your oxygen level is persistently below 92 %, please return to the emergency room. Call with questions or concerns. Return to care if you have significant concerns or worsening condition. All discharge instructions reviewed with patient and/or family. Voiced understanding. Scripts Benzonatate (TESSALON PERLES) 100 Mg Capsule 200 MG PO TID PRN for COUGH, #20 CAP Prov: JOSE MARIA VEGA MD 07/12/20 Azithromycin (Azithromycin) 250 Mg Tablet 250 MG PO UD, #6 TAB TAKE 2 TABLETS ON DAY ONE THEN TAKE 1 TABLET DAILY FOR FOUR MORE DAYS Prov: JOSE MARIA VEGA MD 07/12/20 Medical Student Attestation and Attending Note: I have personally interviewed and examined this patient along with Rian Ornelas MS3. I have reviewed student documentation including history, physical, and assessments. I agree with the documentation except where otherwise noted. Exam: General: Alert, oriented, no acute distress, well developed HEENT: Normocephalic and atraumatic Heart: Regular rate and rhythm without murmur Lungs: Clear to auscultation bilaterally. Tachypnea with shallow inspirations. Abdomen: Soft, nontender, nondistended, normal bowel sounds Neuropsych: Alert, oriented, no focal deficits Skin: Warm and dry without rashes (JOSE MARIA VEGA MD) RIAN ORNELAS MED STUDENT July 12, 2020 13:37 JOSE MARIA VEGA MD July 12, 2020 15:42
[2020-07-12] MEDS ORDERED: CATHETER FLUSH 10 ML SYR IV PRN (14:00)
[2020-07-12] MEDS ORDERED: NS 100 ML (IVPB) BAG IV ONE (14:00)
[2020-07-12] MEDS ORDERED: HOLD METFORMIN - RECEIVED CONTRAST 20 ML VIAL IV SCH (14:00)
[2020-07-12] MEDS ORDERED: IOHEXOL 350 MG/ML 100 ML (OMNIPAQUE 350) VIAL IV ONE (14:00)
--- NOTE | 2020-07-12 14:12 | Diagnostic Imaging Report ---
PROCEDURE: CT angiography Chest TECHNIQUE: After intravenous administration of contrast, thin section axial CT angiography of the chest was performed. 3D MIP reconstructions were made. All CT scans use one or more of the following dose optimizing techniques: automated exposure control, MA and/or KvP adjustment based on a patient size and exam type, or iterative reconstruction. INDICATION: Fever, body aches and Covid positive. Pulmonary embolism suspected. COMPARISON: Chest radiograph from same day FINDINGS: Vasculature: No pulmonary emboli. No CT evidence of pulmonary hypertension or right ventricular strain. Thoracic aorta is normal in caliber. No aortic dissection or pseudoaneurysm. Heart and mediastinum: Visualized thyroid is normal. No supraclavicular, axillary, or intra-thoracic lymphadenopathy. The heart is normal in size without pericardial effusion. Pleura: No pleural effusion or pneumothorax. Lungs and airway: No endoluminal lesion in the trachea or central bronchi. Multifocal randomly distributed groundglass opacities are present. There are some linear areas of atelectasis within the lower lobes. Mild peribronchial thickening. Upper abdomen: Diffuse hypoattenuation liver suggests hepatic steatosis. No acute abnormality upper abdomen. Musculoskeletal: No concerning osseous lesion. IMPRESSION: 1. No pulmonary emboli or acute aortic syndrome. 2. Multifocal pulmonary groundglass opacities have an appearance that would be consistent with patient's reported Covid-19 infection. Dictated by: Dictated on workstation # [id number]
[2020-07-12] MEDS ORDERED: BENZ100C18 PO (15:46)
[2020-07-12] MEDS ORDERED: AZIT250T12 PO (15:46)
[2020-07-12 16:05] VITALS: BP 110/78
== END 2020-07-12 16:05 | disposition home or self-care (01) ==
LOC: EDUNIT# 12:09 → ER 12:11
DX: U07.1 COVID-19 (principal); R07.81 Pleurodynia; R79.1 Abnormal coagulation profile; E11.9 Type 2 diabetes mellitus without complications; I10 Essential (primary) hypertension; J45.909 Unspecified asthma, uncomplicated; Z79.84 Long term (current) use of oral hypoglycemic drugs; Z79.899 Other long term (current) drug therapy; Z73.0 Burn-out
CPT/HCPCS: 36415; 71045; 71275; 80053; 83615; 84145; 85025; 85379; 86141; 96374

== ENCOUNTER 2020-10-17 16:42 | Emergency (ER) | payer SELFPAY ==
[~2020-10-17 16:42] MED LIST changes: +AZIT250T12 PO; +BENZ100C18 PO
[2020-10-17 17:05] LABS: MEAN CORPUSCULAR HEMOGLOBIN 28 pg (25-34); MEAN CORPUSCULAR HGB CONC 33 g/dL (32-36); MEAN CORPUSCULAR VOLUME 86 fL (80-99); MONOCYTES % (AUTO) 8 % (0-12)
[2020-10-17 17:07] LABS: BASOPHILS # (AUTO) 0.1 10^3/uL (0.0-0.1); BASOPHILS % (AUTO) 1 % (0-10); EOSINOPHILS # (AUTO) 0.4 10^3/uL (0.0-0.3); EOSINOPHILS % (AUTO) 4 % (0-10); HEMATOCRIT 42 % (35-52); HEMOGLOBIN 13.6 g/dL (11.5-16.0); LYMPHOCYTES # (AUTO) 2.5 10^3/uL (1.0-4.0); LYMPHOCYTES % (AUTO) 27 % (12-44); MEAN PLATELET VOLUME 13.2 fL (9.0-12.2); MONOCYTES # (AUTO) 0.7 10^3/uL (0.0-1.0); NEUTROPHILS # (AUTO) 5.5 10^3/uL (1.8-7.8); NEUTROPHILS % (AUTO) 60 % (42-75); PLATELET COUNT 152 10^3/uL (130-400); WHITE BLOOD COUNT 9.2 10^3/uL (4.3-11.0)
[2020-10-17 17:11] LABS: BILIRUBIN,URINE NEGATIVE (NEGATIVE); CLARITY,URINE CLEAR; COLOR,URINE YELLOW; GLUCOSE, URINE (UA) 3+ (NEGATIVE); KETONES,URINE NEGATIVE (NEGATIVE); LEUKOCYTE ESTERASE ,URINE NEGATIVE (NEGATIVE); NITRITE,URINE POSITIVE (NEGATIVE); PROTEIN,URINE NEGATIVE (NEGATIVE)
[2020-10-17 17:15] LABS: ALBUMIN 3.8 GM/DL (3.2-4.5); POTASSIUM 4.1 MMOL/L (3.6-5.0)
[2020-10-17 17:17] LABS: CALCIUM 9.3 MG/DL (8.5-10.1)
[2020-10-17 17:18] LABS: TOTAL PROTEIN 7.2 GM/DL (6.4-8.2)
[2020-10-17 17:20] LABS: BILIRUBIN,TOTAL 0.6 MG/DL (0.1-1.0)
[2020-10-17 17:21] LABS: CREATININE SERUM 0.96 MG/DL (0.60-1.30)
--- NOTE | 2020-10-17 17:23 | ED General ---
General Chief Complaint: Glucose Problems Stated Complaint: BLOOD SUGAR >600 Nursing Triage Note: AMB TO ED ACCOMPIED BY WHO SPEAKS [place] PATIENT WAS SENT BY [facility] FOR BLOOD SUGAR OF 600 PATIENT HAS WENT TO [facility] FOR LEG PAIN FOR 2 MONTHS AND WANTED THE COVID VACCAINE. History of Present Illness Date Seen by Provider: Oct 17, 2020 Time Seen by Provider: 17:08 Initial Comments Patient is a 60-year-old female who presents to the emergency department today with a chief complaint of elevated blood sugar. Patient was going to [facility] clinic today to get her Covid vaccine, she had her blood sugar t ested and was told it was greater than 600. Patient was sent to the emergency room for further evaluation and management. Patient denies any recent illnesses such as fever, chills, cough, congestion. No shortness of breath or chest pain. No abdominal pain, nausea, vomiting, diarrhea. No urinary complaints. Patient complains of chronic pain in her lower extremities that she takes ibuprofen for at night. No rashes or swelling. No sick contacts. She is known diabetic on Metformin for at least the last 10 years and does not recall any medication changes. She does follow-up fairly frequently with [facility]. She does not know what her hemoglobin A1c is. On arrival she has stable vital signs, she is not tachycardic, hypotensive or hypoxic. She is quite tearful and anxious. All other review of systems reviewed and negative except as stated. Associated Systoms: Denies Symptoms Allergies and Home Medications Allergies Coded Allergies: No Known Drug Allergies (Unverified , 03/11/19) Home Medications Acetaminophen/Diphenhydramine 1 Each Tablet, 1 EACH PO Q4H PRN for PAIN-MILD (1- 4), (Reported) Atorvastatin Calcium 20 Mg Tablet, 20 MG PO DAILY, (Reported) Azithromycin 250 Mg Tablet, 250 MG PO UD TAKE 2 TABLETS ON DAY ONE THEN TAKE 1 TABLET DAILY FOR FOUR MORE DAYS Prescribed by: JOSE MARIA CORONADO on 07/12/20 1546 Benzonatate 100 Mg Capsule, 200 MG PO TID PRN for COUGH Prescribed by: JOSE MARIA CORONADO on 07/12/20 1546 Cefdinir 300 Mg Capsule, 300 MG PO BID Prescribed by: AVRIL LARA on 03/14/19 1020 Cephalexin 500 Mg Tablet, 500 MG PO TID Prescribed by: MILTON HACKETT on 10/17/20 1746 Gabapentin 100 Mg Capsule, 100 MG PO TID, (Reported) Gabapentin 100 Mg Capsule, 100 MG PO TID Prescribed by: MILTON HACKETT on 10/17/20 1756 Glipizide 10 Mg Tablet, 10 MG PO DAILY, (Reported) Levothyroxine Sodium 25 Mcg Tablet, 25 MCG PO DAILY, (Reported) Lisinopril 10 Mg Tablet, 10 MG PO DAILY, (Reported) Metformin HCl 500 Mg Tab.er.24, 500 MG PO BID WITH MEALS, (Reported) Sertraline HCl 100 Mg Tablet, 100 MG PO DAILY, (Reported) Valacyclovir HCl 1,000 Mg Tablet, 1,000 MG PO BID Prescribed by: AVRIL LARA on 03/14/19 1021 Patient Home Medication List Home Medication List Reviewed: Yes Review of Systems Review of Systems Constitutional: see HPI EENTM: no symptoms reported Respiratory: no symptoms reported Cardiovascular: no symptoms reported Gastrointestinal: no symptoms reported Genitourinary: no symptoms reported : No Musculoskeletal: No joint pain, No joint swelling; muscle pain Skin: no symptoms reported All Other Systems Reviewed Negative Unless Noted: Yes Past Parwdnb-Sscwbz-Wpdigq Hx Patient Social History Tobacco Use?: No Use of E-Cig and/or Vaping dev: No Substance use?: No Pt feels they are or have been: No Seasonal Allergies Seasonal Allergies: No Past Medical History Surgeries: Yes Hysterectomy Respiratory: Yes Asthma Cardiac: Yes Hypertension Neurological: No Genitourinary: No Gastrointestinal: No Musculoskeletal: No Endocrine: Yes Diabetes, Non-Insulin dep HEENT: No Cancer: No Psychosocial: No Integumentary: No Physical Exam Vital Signs Vital Signs - First Documented 10/17/20 16:50 Temp 35.9 Pulse 97 Resp 18 B/P (MAP) 121/70 (87) Pulse Ox 97 Capillary Refill : Less Than 3 Seconds Height, Weight, BMI Height: '" Weight: lbs. oz. kg; 27.00 BMI Method: General Appearance: No Apparent Distress, WD/WN, Anxious Eyes: Bilateral Eye Normal Inspection, Bilateral Eye PERRL, Bilateral Eye EOMI HEENT: PERRL/EOMI, Normal ENT Inspection, Pharynx Normal Neck: Normal Inspection, Non Tender, Supple Respiratory: Lungs Clear, Normal Breath Sounds, No Accessory Muscle Use, No Respiratory Distress Cardiovascular: Regular Rate, Rhythm, Normal Peripheral Pulses Gastrointestinal: Non Tender Extremity: Normal Inspection, Normal Range of Motion, Non Tender, No Calf Tenderness Neurologic/Psychiatric: Alert, Oriented x3, No Motor/Sensory Deficits, Other (Tearful) Skin: Normal Color, Warm/Dry Progress/Results/Core Measures Suspected Sepsis SIRS Temperature: Pulse: 97 Respiratory Rate: 18 Laboratory Tests 10/17/20 16:59: White Blood Count 9.2 Blood Pressure 121 /70 Mean: 87 Laboratory Tests 10/17/20 16:59: Creatinine 0.96, Platelet Count 152, Total Bilirubin 0.6 Results/Orders Lab Results Laboratory Tests Test 10/17/20 16:59 10/17/20 17:03 10/17/20 17:07 Range/Units White Blood Count 9.2 4.3-11.0 10^3/uL Red Blood Count 4.88 3.80-5.11 10^6/uL Hemoglobin 13.6 11.5-16.0 g/dL Hematocrit 42 35-52 % Mean Corpuscular Volume 86 80-99 fL Mean Corpuscular Hemoglobin 28 25-34 pg Mean Corpuscular Hemoglobin Concent 33 32-36 g/dL Red Cell Distribution Width 14.4 10.0-14.5 % Platelet Count 152 130-400 10^3/uL Mean Platelet Volume 13.2 H 9.0-12.2 fL Immature Granulocyte % (Auto) 0 % Neutrophils (%) (Auto) 60 42-75 % Lymphocytes (%) (Auto) 27 12-44 % Monocytes (%) (Auto) 8 0-12 % Eosinophils (%) (Auto) 4 0-10 % Basophils (%) (Auto) 1 0-10 % Neutrophils # (Auto) 5.5 1.8-7.8 10^3/uL Lymphocytes # (Auto) 2.5 1.0-4.0 10^3/uL Monocytes # (Auto) 0.7 0.0-1.0 10^3/uL Eosinophils # (Auto) 0.4 H 0.0-0.3 10^3/uL Basophils # (Auto) 0.1 0.0-0.1 10^3/uL Immature Granulocyte # (Auto) 0.0 0.0-0.1 10^3/uL Percent Immature Platelet Fraction 12.5 H 0.0-7.6 % Sodium Level 132 L 135-145 MMOL/L Potassium Level 4.1 3.6-5.0 MMOL/L Chloride Level 100 98-107 MMOL/L Carbon Dioxide Level 21 21-32 MMOL/L Anion Gap 11 5-14 MMOL/L Blood Urea Nitrogen 14 7-18 MG/DL Creatinine 0.96 0.60-1.30 MG/DL Estimat Glomerular Filtration Rate 59 BUN/Creatinine Ratio 15 Glucose Level 520 *H 70-105 MG/DL Calcium Level 9.3 8.5-10.1 MG/DL Corrected Calcium 9.5 8.5-10.1 MG/DL Total Bilirubin 0.6 0.1-1.0 MG/DL Aspartate Amino Transf (AST/SGOT) 57 H 5-34 U/L Alanine Aminotransferase (ALT/SGPT) 76 H 0-55 U/L Alkaline Phosphatase 157 H 40-136 U/L Total Protein 7.2 6.4-8.2 GM/DL Albumin 3.8 3.2-4.5 GM/DL Glucometer 471 *H 70-110 MG/DL Urine Color YELLOW Urine Clarity CLEAR Urine pH 7.0 5-9 Urine Specific [place] 1.010 L 1.016-1.022 Urine Protein NEGATIVE NEGATIVE Urine Glucose (UA) 3+ H NEGATIVE Urine Ketones NEGATIVE NEGATIVE Urine Nitrite POSITIVE H NEGATIVE Urine Bilirubin NEGATIVE NEGATIVE Urine Urobilinogen 0.2 < = 1.0 MG/DL Urine Leukocyte Esterase NEGATIVE NEGATIVE Urine RBC (Auto) NEGATIVE NEGATIVE Urine RBC NONE /HPF Urine WBC 2-5 /HPF Urine Crystals NONE /LPF Urine Bacteria LARGE H /HPF Urine Casts NONE /LPF Urine Mucus NEGATIVE /LPF Urine Culture Indicated YES My Orders Orders - MILTON HACKETT MD Ns Iv 1000 Ml (Sodium Chloride 0.9%) (10/17/20 17:30) Cephalexin Capsule (Keflex Capsule) (10/17/20 17:50) Vital Signs/I&O 10/17/20 16:50 Temp 35.9 Pulse 97 Resp 18 B/P (MAP) 121/70 (87) Pulse Ox 97 Capillary Refill : Less Than 3 Seconds Blood Pressure Mean: 87 Point of Care Testing Finger Stick Blood Glucose: 471 Progress Note : Time: 17:30 Progress Note Labs reviewed and look good. SHe does have a urinary tract infection which may be causing her blood sugars to be on the high side. She is treated in the ER for her high blood sugar with a liter of NS and given Keflex. SHe will be instructed to take the antibiotics for 1 week. Follow up at [facility] in a week. return precautions given. Departure Impression Primary Impression: UTI (urinary tract infection) Qualified Codes: N39.0 - Urinary tract infection, site not specified Additional Impression: Hyperglycemia due to diabetes mellitus Disposition: 01 HOME, SELF-CARE Condition: Stable Departure-Patient Inst. Decision time for Depature: 17:44 Referrals: [facility]/ NO,LOCAL PHYSICIAN (PCP) Primary Care Physician Patient Instructions: Urinary Tract Infection, Adult (DC) Add. Discharge Instructions: kavitha muchos lquidos para mantenerse hidratado. tome los antibiticos sandro 7 lees hasta que desaparezcan. 3 veces al da. Estoy aumentando hernandez GABAPENTIN a 300mg 3 veces al da. contine con brett medicamentos diarios segn lo recetado. controle brett niveles de azcar en la len al menos dos veces al da y mantenga un registro de ellos. regrese a la jennifer de emergencias para tener fiebre, dolor, vmitos o cualquier otro sntoma emergente. seguimiento en la clnica en 2 semanas. binu vez que brett antibiticos hayan terminado, puede recibir hernandez vacuna contra el covid. drink lots of fluids to stay hydrated. take the antibiotics for 7 days until they are gone. 3 times a day. I am increasing your GABAPENTIN to 300mg 3 times a day. continue your daily medications as prescribed. check your blood sugars at least twice a day and keep a record of them. return to the emergency room for fever, pain, vomiting or any other emergent concerning symptoms. follow up at the clinic in 2 weeks. once your antibiotics are finished you can get your covid vaccine. Scripts Gabapentin (Gabapentin) 100 Mg Capsule 100 MG PO TID for Neuropathic pain, #90 CAP 3 Refills Prov: MILTON HACKETT MD 10/17/20 Cephalexin (Cephalexin) 500 Mg Tablet 500 MG PO TID for 7 Days, #21 TAB Prov: MILTON HACKETT MD 10/17/20 MILTON HACKETT MD Oct 17, 2020 17:23
[2020-10-17 17:25] LABS: BACTERIA,URINE LARGE /HPF
[2020-10-17] MEDS ORDERED: NS IV 1000 ML 1,000 ML IV SCH (17:30)
[2020-10-17] MEDS ORDERED: CEPH500T PO (17:46)
[2020-10-17] MEDS ORDERED: CEPHALEXIN 250 MG (KEFLEX) CAP PO STA (17:50)
[2020-10-17] MEDS ORDERED: GABA-486 PO (17:56)
[2020-10-17] MEDS ORDERED: NS IV 1000 ML 1,000 ML IV ONE (18:30)
[2020-10-17 19:43] VITALS: BP 115/70
== END 2020-10-17 19:43 | disposition home or self-care (01) ==
LOC: EDUNIT# 16:42 → ER 16:45
DX: N39.0 Urinary tract infection, site not specified (principal); E11.65 Type 2 diabetes mellitus with hyperglycemia; I10 Essential (primary) hypertension; J45.909 Unspecified asthma, uncomplicated; Z79.84 Long term (current) use of oral hypoglycemic drugs; Z79.899 Other long term (current) drug therapy
CPT/HCPCS: 36415; 80053; 81000; 82947; 85025; 87077; 87088

== ENCOUNTER 2022-02-19 02:27 | Emergency (ER) | payer SELFPAY ==
[~2022-02-19] VITALS: Ht 157.5 cm; Wt 72.6 kg
[~2022-02-19 02:27] MED LIST changes: +CEPH500T PO
--- NOTE | 2022-02-19 02:47 | ED Chest Pain ---
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 States she awoke at some point this morning, unsure what time with chest pain that feels like a "pressure" on her chest as well as shortness of breath. She states she feels like her throat is "closing". She recently started a new medication for her bladder and has taken 3 tablets for that. No other new medications. She states she had some similar symptoms about a year ago, she does not know what the diagnosis is. Patient states after set tling into the ER that her shortness of breath is getting better. She was given 324 of aspirin as well as Nitropaste prior to arrival, her chest pain was alleviated with this. She denies recent fevers, chills, cough or congestion. No sick contacts. She denies history of cardiac work-up or intervention. Non- smoker. She is a diabetic and has a history of hypertension. 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 CLERK: Yes NTG SL SENIOR CLERK: Yes Associated Symptoms: shortness of breath Allergies and Home Medications Allergies Coded Allergies: No Known Drug Allergies (Unverified , 03/11/19) Patient Home Medication List Home Medication List Reviewed: Yes Acetaminophen/Diphenhydramine (Acetaminophen Pm Caplet) 1 Each Tablet, 1 EACH PO Q4H PRN for PAIN-MILD (1-4), (Reported) Entered as Reported by: KAROLINA MILLER on 03/13/191658 Atorvastatin Calcium (Atorvastatin Calcium) 20 Mg Tablet, 20 MG PO DAILY, (Reported) Entered as Reported by: KAROLINA MILLER on 03/13/191658 Azithromycin (Azithromycin) 250 Mg Tablet, 250 MG PO UD Prescribed by: JOSE MARIA CORONADO on 07/12/20 154 Benzonatate (Tessalon Perles) 100 Mg Capsule, 200 MG PO TID PRN for COUGH Prescribed by: JOSE MARIA CORONADO on 07/12/20 154 Cefdinir (Cefdinir) 300 Mg Capsule, 300 MG PO BID Prescribed by: AVRIL LARA on 03/14/19 1020 Cephalexin (Cephalexin) 500 Mg Tablet, 500 MG PO TID Prescribed by: MILTON HACKETT on 10/17/20 1746 Gabapentin (Gabapentin) 100 Mg Capsule, 100 MG PO TID, (Reported) Entered as Reported by: KAROLINA MILLER on 03/13/19 165 Gabapentin (Gabapentin) 100 Mg Capsule, 100 MG PO TID Prescribed by: MILTON HACKETT on 10/17/20 175 Glipizide (Glipizide) 10 Mg Tablet, 10 MG PO DAILY, (Reported) Entered as Reported by: KAROLINA MILLER on 03/13/19 165 Levothyroxine Sodium (Levothyroxine Sodium) 25 Mcg Tablet, 25 MCG PO DAILY, (Reported) Entered as Reported by: KAROLINA MILLER on 03/13/19 165 Lisinopril (Lisinopril) 10 Mg Tablet, 10 MG PO DAILY, (Reported) Entered as Reported by: KAROLINA MILLER on 03/13/19 165 Metformin HCl (Metformin HCl ER) 500 Mg Tab.er.24, 500 MG PO BID WITH MEALS, (Reported) Entered as Reported by: KAROLINA MILLER on 03/13/191658 Sertraline HCl (Sertraline HCl) 100 Mg Tablet, 100 MG PO DAILY, (Reported) Entered as Reported by: KAROLINA MILLER on 03/13/191658 Valacyclovir HCl (Valtrex) 1,000 Mg Tablet, 1,000 MG PO BID Prescribed by: AVRIL LARA on 03/14/19 1021 Review of Systems Review of Systems Constitutional: see HPI EENTM: Throat Swelling Respiratory: Shortness of Air Cardiovascular: Chest Pain Gastrointestinal: No Symptoms Reported Genitourinary: No Symptoms Reported Musculoskeletal: no symptoms reported Skin: no symptoms reported All Other Systems Reviewed Negative Unless Noted: Yes Past Deeurov-Vynpbz-Yzqzsi Hx Seasonal Allergies Seasonal Allergies: No Past Medical History Surgeries: Yes Hysterectomy Respiratory: Yes Asthma Cardiac: Yes Hypertension Neurological: No Genitourinary: No Gastrointestinal: No Musculoskeletal: No Endocrine: Yes Diabetes, Non-Insulin dep HEENT: No Cancer: No Psychosocial: No Integumentary: No Physical Exam Vital Signs Vital Signs - First Documented 02/19/22 02:35 Temp 36.8 Pulse 71 Resp 28 B/P (MAP) 124/83 (97) Pulse Ox 100 O2 Delivery Room Air Capillary Refill : Height, Weight, BMI Height: '" Weight: lbs. oz. kg; 27.00 BMI Method: General Appearance: WD/WN, Moderate Distress HEENT: PERRL/EOMI, Other (hoarse voice) Neck: Normal Inspection Respiratory: Lungs Clear, Normal Breath Sounds, No Accessory Muscle Use, No Respiratory Distress Cardiovascular: Regular Rate, Rhythm, Normal Peripheral Pulses (1+ radial pulses bilaterally) Gastrointestinal: Non Tender, Soft Extremity: Normal Inspection, Normal Range of Motion, Non Tender, No Pedal Edema Neurologic/Psychiatric: Alert, Oriented x3, No Motor/Sensory Deficits, Other (tearful anxious, upset) Skin: Normal Color, Warm/Dry Progress/Results/Core Measures Results/Orders Lab Results Laboratory Tests Test 02/19/22 02:45 02/19/22 05:05 Range/Units White Blood Count 11.5 H 4.3-11.0 10^3/uL Red Blood Count 4.56 3.80-5.11 10^6/uL Hemoglobin 12.5 11.5-16.0 g/dL Hematocrit 39 35-52 % Mean Corpuscular Volume 85 80-99 fL Mean Corpuscular Hemoglobin 27 25-34 pg Mean Corpuscular Hemoglobin Concent 32 32-36 g/dL Red Cell Distribution Width 13.7 10.0-14.5 % Platelet Count 214 130-400 10^3/uL Mean Platelet Volume 12.4 H 9.0-12.2 fL Immature Granulocyte % (Auto) 0 % Neutrophils (%) (Auto) 52 42-75 % Lymphocytes (%) (Auto) 34 12-44 % Monocytes (%) (Auto) 8 0-12 % Eosinophils (%) (Auto) 5 0-10 % Basophils (%) (Auto) 1 0-10 % Neutrophils # (Auto) 6.0 1.8-7.8 10^3/uL Lymphocytes # (Auto) 4.0 1.0-4.0 10^3/uL Monocytes # (Auto) 0.9 0.0-1.0 10^3/uL Eosinophils # (Auto) 0.6 H 0.0-0.3 10^3/uL Basophils # (Auto) 0.1 0.0-0.1 10^3/uL Immature Granulocyte # (Auto) 0.0 0.0-0.1 10^3/uL Prothrombin Time 13.7 12.2-14.7 SEC INR Comment 1.0 0.8-1.4 Activated Partial Thromboplast Time 44 H 24-35 SEC Sodium Level 140 135-145 MMOL/L Potassium Level 3.9 3.6-5.0 MMOL/L Chloride Level 106 98-107 MMOL/L Carbon Dioxide Level 20 L 21-32 MMOL/L Anion Gap 14 5-14 MMOL/L Blood Urea Nitrogen 21 H 7-18 MG/DL Creatinine 0.91 0.60-1.30 MG/DL Estimat Glomerular Filtration Rate 71 BUN/Creatinine Ratio 23 Glucose Level 153 H 70-105 MG/DL Calcium Level 9.8 8.5-10.1 MG/DL Corrected Calcium 10.0 8.5-10.1 MG/DL Magnesium Level 1.7 1.6-2.4 MG/DL Total Bilirubin 0.5 0.1-1.0 MG/DL Aspartate Amino Transf (AST/SGOT) 28 5-34 U/L Alanine Aminotransferase (ALT/SGPT) 34 0-55 U/L Alkaline Phosphatase 109 40-136 U/L Myoglobin 37.7 10.0-92.0 NG/ML Troponin I < 0.028 < 0.028 <0.028 NG/ML Total Protein 7.3 6.4-8.2 GM/DL Albumin 3.8 3.2-4.5 GM/DL My Orders Orders - MILTON HACKETT MD Cbc With Automated Diff (02/19/22 02:42) Magnesium (02/19/22 02:42) Chest 1 View, Ap/Pa Only (02/19/22 02:42) Ekg Tracing (02/19/22 02:42) Comprehensive Metabolic Panel (02/19/22 02:42) Myoglobin Serum (02/19/22 02:42) Protime With Inr (02/19/22 02:42) Partial Thromboplastin Time (02/19/22 02:42) O2 (02/19/22 02:42) Monitor-Rhythm Ecg Trace Only (02/19/22 02:42) Lipid Panel (02/20/22 06:00) Ed Iv/Invasive Line Start (02/19/22 02:42) Troponin I Smith (02/19/22 02:42) Pantoprazole Injection (Protonix Injecti (02/19/22 04:00) Troponin I Barbara (02/19/22 04:49) Medications Given in ED Current Medications Medications Dose Ordered Sig/Ángel Route Start Time Stop Time Status Last Admin Dose Admin Pantoprazole 40 mg ONCE ONCE IV 02/19/22 04:00 02/19/22 04:01 DC 02/19/22 04:18 40 MG Vital Signs/I&O 02/19/22 02/19/22 02:35 02:50 Temp 36.8 Pulse 71 Resp 28 B/P (MAP) 124/83 (97) Pulse Ox 100 O2 Delivery Room Air Room Air Progress Progress Note : Time: 04:05 Progress Note 0404 Further history from - she woke up at about 0145 and felt like something was in her throat, like it had "come up". She may have had some acid reflux and then that caused some pain and shortness of breath. Her labs look normal so far Chest xray is unremarkable and EKG is good. Plan to repeat troponin at 5am, w hich will be about 3 hours after onset of symptoms. No concner for acute PE (never hypoxic, tachy, no ongoing pain and no risk factors) CTA considered but history and PE do not support the need. Consideration for dissection, Ptx, and pneumonia. Initial ECG Impression Date: Feb 19, 2022 Initial ECG Impression Time: 02:36 Initial ECG Rate: 81 Initial ECG Rhythm: Normal Sinus Initial ECG Intervals: Normal Initial ECG Impression: Normal Comment No ectopy; No st elevation or depression; normal intervals Diagnostic Imaging Diagonstic Imaging: Xray Plain Films/CT/US/NM/MRI: chest Comments chest xray: normal mediastinal structures; no effusion or infiltrate; normal bony thorax; mildly prominent interstitial markings (interpreted by me) Departure Impression Primary Impression: Chest pain Qualified Codes: R07.9 - Chest pain, unspecified Additional Impression: GERD (gastroesophageal reflux disease) Qualified Codes: K21.9 - Gastro-esophageal reflux disease without esophagitis Disposition: 01 HOME, SELF-CARE Condition: Improved Departure-Patient Inst. Decision time for Depature: 06:08 Referrals: NO,LOCAL PHYSICIAN (PCP/Family) Primary Care Physician Patient Instructions: Acid Reflux and GERD in Adults (DC) Add. Discharge Instructions: Continue your daily medications as prescribed. Talk to your doctor about taking a medication for your Knee pain such as Mobic. Return to the Emergency Department for any new, concerning or emergent complaints. Contine con brett medicamentos diarios segn lo recetado. Hable con hernandez mdico acerca de brian un medicamento para hernandez dolor de rodilla melida Mobic. Regrese al Departamento de Emergencias para cualquier queja nueva, preocupante o emergente. MILTON HACKETT MD Feb 19, 2022 02:47
[2022-02-19 02:54] LABS: BASOPHILS # (AUTO) 0.1 10^3/uL (0.0-0.1); BASOPHILS % (AUTO) 1 % (0-10); EOSINOPHILS # (AUTO) 0.6 10^3/uL (0.0-0.3); EOSINOPHILS % (AUTO) 5 % (0-10); HEMATOCRIT 39 % (35-52); HEMOGLOBIN 12.5 g/dL (11.5-16.0); LYMPHOCYTES % (AUTO) 34 % (12-44); MEAN CORPUSCULAR HEMOGLOBIN 27 pg (25-34); MEAN CORPUSCULAR HGB CONC 32 g/dL (32-36); MEAN CORPUSCULAR VOLUME 85 fL (80-99); MEAN PLATELET VOLUME 12.4 fL (9.0-12.2); MONOCYTES # (AUTO) 0.9 10^3/uL (0.0-1.0); MONOCYTES % (AUTO) 8 % (0-12); NEUTROPHILS % (AUTO) 52 % (42-75); PLATELET COUNT 214 10^3/uL (130-400); WHITE BLOOD COUNT 11.5 10^3/uL (4.3-11.0)
[2022-02-19 03:04] LABS: ALBUMIN 3.8 GM/DL (3.2-4.5)
[2022-02-19 03:05] LABS: POTASSIUM 3.9 MMOL/L (3.6-5.0)
[2022-02-19 03:06] LABS: CALCIUM 9.8 MG/DL (8.5-10.1); PROTHROMBIN TIME PATIENT 13.7 SEC (12.2-14.7)
[2022-02-19 03:07] LABS: TOTAL PROTEIN 7.3 GM/DL (6.4-8.2)
[2022-02-19 03:09] LABS: BILIRUBIN,TOTAL 0.5 MG/DL (0.1-1.0)
[2022-02-19 03:11] LABS: CREATININE SERUM 0.91 MG/DL (0.60-1.30)
[2022-02-19 03:13] LABS: MAGNESIUM 1.7 MG/DL (1.6-2.4)
[2022-02-19] MEDS ORDERED: PANTOPRAZOLE 40 MG (PROTONIX) VIAL IV ONE (04:00)
[2022-02-19] MEDS ORDERED: LIDOCAINE 2% VISCOUS 15 ML UDC PO ONE (06:15)
[2022-02-19] MEDS ORDERED: SUCRALFATE 1 GM (CARAFATE) TAB PO ONE (06:15)
[2022-02-19] MEDS ORDERED: ANTACID SUSP 30 ML UDC (MYLANTA) PO ONE (06:15)
[2022-02-19 06:43] VITALS: BP 104/72
--- NOTE | 2022-02-19 07:07 | Diagnostic Imaging Report ---
HISTORY: Chest pain TECHNIQUE: Frontal view the chest. COMPARISON: 07/12/2020 FINDINGS: Lung volumes are normal. There are mild airspace opacities in the lung bases. There is no pleural effusion or pneumothorax. The cardiac silhouette is normal in size. IMPRESSION: 1. Mild bibasilar airspace opacities, may be due to atelectasis or infiltrate. Dictated by: Dictated on workstation # [id number]
== END 2022-02-19 06:35 | disposition home or self-care (01) ==
LOC: EDUNIT# 02:27 → ER 02:28
DX: K21.9 Gastro-esophageal reflux disease without esophagitis (principal)
CPT/HCPCS: 36415; 71045; 80053; 83735; 83874; 84484; 85025; 85610; 85730; 93005; 93041

== ENCOUNTER 2022-07-22 19:25 | Emergency (ER) | payer SELFPAY ==
[~2022-07-22] VITALS: Ht 157.5 cm; Wt 70.0 kg
--- NOTE | 2022-07-22 19:41 | ED Cough/URI ---
General Chief Complaint: Cough/Cold/Flu Symptoms Stated Complaint: COUGH/DIZZY/SORE THROAT History of Present Illness Date Seen by Provider: Jul 22, 2022 Time Seen by Provider: 19:39 Initial Comments 61-year-old female presents with cough, sore throat, generalized malaise is been going on for about 2 weeks. Patient reports she tried some [id number] DayQuil and NyQuil and has had increasing cough and discomfort in her chest from the cough. No reports of fevers. Allergies and Home Medications Allergies Coded Allergies: No Known Drug Allergies (Unverified , 03/11/19) Patient Home Medication List Home Medication List Reviewed: Yes Acetaminophen/Diphenhydramine (Acetaminophen Pm Caplet) 1 Each Tablet, 1 EACH PO Q4H PRN for PAIN-MILD (1-4), (Reported) Entered as Reported by: KAROLINA MILLER on 03/13/191658 Atorvastatin Calcium (Atorvastatin Calcium) 20 Mg Tablet, 20 MG PO DAILY, (Reported) Entered as Reported by: KAROLINA MILLER on 03/13/191658 Azithromycin (Azithromycin) 250 Mg Tablet, 250 MG PO UD Prescribed by: JOSE MARIA CORONADO on 07/12/20 1546 Benzonatate (Tessalon Perles) 100 Mg Capsule, 200 MG PO TID PRN for COUGH Prescribed by: JOSE MARIA CORONADO on 07/12/20 1546 Cefdinir (Cefdinir) 300 Mg Capsule, 300 MG PO BID Prescribed by: AVRIL LARA on 03/14/19 1020 Cephalexin (Cephalexin) 500 Mg Tablet, 500 MG PO TID Prescribed by: MILTON HACKETT on 10/17/20 1746 Gabapentin (Gabapentin) 100 Mg Capsule, 100 MG PO TID, (Reported) Entered as Reported by: KAROLINA MILLER on 03/13/191658 Gabapentin (Gabapentin) 100 Mg Capsule, 100 MG PO TID Prescribed by: MILTON HACKETT on 10/17/20 175 Glipizide (Glipizide) 10 Mg Tablet, 10 MG PO DAILY, (Reported) Entered as Reported by: KAROLINA MILLER on 03/13/191658 Levothyroxine Sodium (Levothyroxine Sodium) 25 Mcg Tablet, 25 MCG PO DAILY, (Reported) Entered as Reported by: KAROLINA MILLER on 03/13/191658 Lisinopril (Lisinopril) 10 Mg Tablet, 10 MG PO DAILY, (Reported) Entered as Reported by: KAROLINA MILLER on 03/13/191658 Metformin HCl (Metformin HCl ER) 500 Mg Tab.er.24, 500 MG PO BID WITH MEALS, ( Reported) Entered as Reported by: KAROLINA MILLER on 03/13/191658 Sertraline HCl (Sertraline HCl) 100 Mg Tablet, 100 MG PO DAILY, (Reported) Entered as Reported by: KAROLINA MILLER on 03/13/191658 Valacyclovir HCl (Valtrex) 1,000 Mg Tablet, 1,000 MG PO BID Prescribed by: AVRIL LARA on 03/14/19 1021 Review of Systems Review of Systems Constitutional: No chills, No fever; malaise EENTM: throat pain Respiratory: cough; No short of breath Cardiovascular: see HPI Gastrointestinal: No abdominal pain, No nausea, No vomiting Genitourinary: see HPI Musculoskeletal: no symptoms reported Skin: no symptoms reported Psychiatric/Neurological: No Symptoms Reported Past Sxbqusd-Cename-Mmdibm Hx Immunizations Up To Date First/Initial COVID19 Vaccinat: 11/06 Second COVID19 Vaccination Isidro: 12/06 Seasonal Allergies Seasonal Allergies: No Past Medical History Surgeries: Yes Hysterectomy Respiratory: Yes Asthma Cardiac: Yes Hypertension Neurological: No Genitourinary: No Gastrointestinal: No Musculoskeletal: No Endocrine: Yes Diabetes, Non-Insulin dep HEENT: No Cancer: No Psychosocial: No Integumentary: No Physical Exam Vital Signs - First Documented 07/22/22 19:34 Temp 36.8 Pulse 106 Resp 16 B/P (MAP) 138/86 (103) Pulse Ox 98 O2 Delivery Room Air Capillary Refill : Height: '" Weight: lbs. oz. kg; 29.00 BMI Method: General Appearance: WD/WN, no apparent distress Neck: full range of motion Respiratory: lungs clear, normal breath sounds, other (Frequent coughing) Cardiovascular: normal peripheral pulses, regular rate, rhythm Gastrointestinal: non tender, soft Neurologic/Psychiatric: alert, normal mood/affect, oriented x 3 Skin: normal color, warm/dry Progress/Results/Core Measures Suspected Sepsis SIRS Temperature: Pulse: Respiratory Rate: Laboratory Tests 07/22/22 19:40: White Blood Count 12.0H Blood Pressure / Mean: Laboratory Tests 07/22/22 19:40: Creatinine 0.89, Platelet Count 301 Results/Orders Lab Results Laboratory Tests Test 07/22/22 19:39 07/22/22 19:40 Range/Units Influenza Type A (RT-PCR) Not Detected Not Detecte Influenza Type B (RT-PCR) Not Detected Not Detecte SARS-CoV-2 RNA (RT-PCR) Detected H Not Detecte White Blood Count 12.0 H 4.3-11.0 10^3/uL Red Blood Count 4.89 3.80-5.11 10^6/uL Hemoglobin 13.3 11.5-16.0 g/dL Hematocrit 41 35-52 % Mean Corpuscular Volume 84 80-99 fL Mean Corpuscular Hemoglobin 27 25-34 pg Mean Corpuscular Hemoglobin Concent 33 32-36 g/dL Red Cell Distribution Width 14.6 H 10.0-14.5 % Platelet Count 301 130-400 10^3/uL Mean Platelet Volume 11.7 9.0-12.2 fL Immature Granulocyte % (Auto) 1 % Neutrophils (%) (Auto) 73 42-75 % Lymphocytes (%) (Auto) 15 12-44 % Monocytes (%) (Auto) 8 0-12 % Eosinophils (%) (Auto) 3 0-10 % Basophils (%) (Auto) 1 0-10 % Neutrophils # (Auto) 8.8 H 1.8-7.8 10^3/uL Lymphocytes # (Auto) 1.8 1.0-4.0 10^3/uL Monocytes # (Auto) 0.9 0.0-1.0 10^3/uL Eosinophils # (Auto) 0.4 H 0.0-0.3 10^3/uL Basophils # (Auto) 0.1 0.0-0.1 10^3/uL Immature Granulocyte # (Auto) 0.1 0.0-0.1 10^3/uL Sodium Level 137 135-145 MMOL/L Potassium Level 4.1 3.6-5.0 MMOL/L Chloride Level 103 98-107 MMOL/L Carbon Dioxide Level 23 21-32 MMOL/L Anion Gap 11 5-14 MMOL/L Blood Urea Nitrogen 11 7-18 MG/DL Creatinine 0.89 0.60-1.30 MG/DL Estimat Glomerular Filtration Rate 73 BUN/Creatinine Ratio 12 Glucose Level 206 H 70-105 MG/DL Calcium Level 9.8 8.5-10.1 MG/DL My Orders Orders - ORLANDO FELDMAN DO Chest Pa/Lat (2 View) (07/22/22 19:53) Basic Metabolic Panel (07/22/22 19:53) Cbc With Automated Diff (07/22/22 19:53) Influenza A And B By Pcr (07/22/22 19:53) Covid 19 Inhouse Test (07/22/22 19:53) Albuterol/Ipra Inhalation Soln (Duoneb I (07/22/22 20:00) Svn Small Volume Nebulizer (07/22/22 19:53) Benzonatate Capsule (Tessalon Perles) (07/22/22 20:45) Medications Given in ED Current Medications Medications Dose Ordered Sig/Ángel Route Start Time Stop Time Status Last Admin Dose Admin Albuterol/ Ipratropium 3 ml ONCE ONCE INH 07/22/22 20:00 07/22/22 20:01 DC 07/22/22 20:22 3 ML Vital Signs/I&O 07/22/22 19:34 Temp 36.8 Pulse 106 Resp 16 B/P (MAP) 138/86 (103) Pulse Ox 98 O2 Delivery Room Air Capillary Refill : Progress Note : Progress Note Patient diagnostic studies were ordered reviewed and interpreted by me. Patient tested positive for COVID. Her chest x-ray is consistent with some mild COVID bilateral mild infiltrates. Since her symptoms of been for 2 weeks since she has had COVID 3 previous times I will go ahead and still treat her with doxycycline for any secondary infection. Patient had an inhaler which she felt helped and I will also give her Tessalon Perles. Patient is stable and discharged home. Departure Impression Primary Impression: COVID-19 Additional Impression: Bronchitis Disposition: HOME, SELF-CARE Condition: Stable Departure-Patient Inst. Referrals: [facility] (PCP/Family) Primary Care Physician Patient Instructions: Acute Bronchitis, Adult (DC), COVID-19 ED, How to use your metered dose inhaler (adults) Add. Discharge Instructions: Please follow-up with your primary care provider as needed. Return to ER with any worsening symptoms increasing shortness of breath or other concerns. All discharge instructions reviewed with patient and/or family. Voiced understanding. Scripts Albuterol Sulfate (VENTOLIN HFA) 1 Puff Puff 2 PUFF INH Q4H PRN for SHORTNESS OF BREATH, #1 EA 1 PUFF = 90 MCG Prov: ORLANDO FELDMAN DO 07/22/22 Benzonatate (TESSALON PERLES) 100 Mg Capsule 100 MG PO TID PRN for COUGH, #14 CAP Prov: ORLANDO FELDMAN DO 07/22/22 Doxycycline Hyclate (Doxycycline Hyclate) 100 Mg Tablet 100 MG PO BID, #20 TAB 0 Refills Prov: ORLANDO FELDMAN DO 07/22/22 ORLANDO FELDMAN DO Jul 22, 2022 19:41
[2022-07-22 19:59] LABS: BASOPHILS # (AUTO) 0.1 10^3/uL (0.0-0.1); BASOPHILS % (AUTO) 1 % (0-10); EOSINOPHILS # (AUTO) 0.4 10^3/uL (0.0-0.3); EOSINOPHILS % (AUTO) 3 % (0-10); HEMATOCRIT 41 % (35-52); HEMOGLOBIN 13.3 g/dL (11.5-16.0); LYMPHOCYTES # (AUTO) 1.8 10^3/uL (1.0-4.0); LYMPHOCYTES % (AUTO) 15 % (12-44); MEAN CORPUSCULAR HEMOGLOBIN 27 pg (25-34); MEAN CORPUSCULAR HGB CONC 33 g/dL (32-36); MEAN CORPUSCULAR VOLUME 84 fL (80-99); MEAN PLATELET VOLUME 11.7 fL (9.0-12.2); MONOCYTES # (AUTO) 0.9 10^3/uL (0.0-1.0); MONOCYTES % (AUTO) 8 % (0-12); NEUTROPHILS # (AUTO) 8.8 10^3/uL (1.8-7.8); NEUTROPHILS % (AUTO) 73 % (42-75); PLATELET COUNT 301 10^3/uL (130-400)
[2022-07-22] MEDS ORDERED: RT-ALBUTEROL/IPRATROPIUM 3 ML (DUONEB) VIAL INH ONE (20:00)
[2022-07-22 20:10] LABS: CALCIUM 9.8 MG/DL (8.5-10.1); CREATININE SERUM 0.89 MG/DL (0.60-1.30); POTASSIUM 4.1 MMOL/L (3.6-5.0)
--- NOTE | 2022-07-22 20:41 | Diagnostic Imaging Report ---
EXAMINATION: CHEST (PA AND LATERAL) CLINICAL INDICATION: 61-year-old female, cough. COMPARISON: March 11, 2019. FINDINGS: Heart size and mediastinal contours are unchanged. There is no identified pneumothorax. There is no pleural effusion. There are streaky opacities in the right midlung. IMPRESSION: 1. Streaky opacities in the right midlung which may reflect atelectasis and/or infiltrate. Dictated by: Dictated on workstation # [id number]
[2022-07-22] MEDS ORDERED: RT-ALBUINH INH (20:42)
[2022-07-22] MEDS ORDERED: BENZ100C18 PO (20:42)
[2022-07-22] MEDS ORDERED: DOXY100T2 PO (20:42)
[2022-07-22] MEDS ORDERED: BENZONATATE 100 MG (TESSALON) CAPSULE PO ONE (20:45)
[2022-07-22 20:48] VITALS: BP 102/62
== END 2022-07-22 20:48 | disposition home or self-care (01) ==
LOC: EDUNIT# 19:25 → ER 19:27
DX: U07.1 COVID-19 (principal); J40 Bronchitis, not specified as acute or chronic
CPT/HCPCS: 36415; 71046; 80048; 85025; 87636